=== PATIENT | female | born 1985 | race Caucasian/White ===

== ENCOUNTER 2016-09-27 20:50 | Emergency (ER) ==
[2016-09-27 21:00] VITALS: TEMP 99.8; BMI 24.3
--- NOTE | 2016-09-27 21:09 | ED.PDOC ---
General ED Provider: Dr. TIGRE CASTELLON Chief Complaint: Abdominal Pain Stated Complaint: Patient is a 31 year old female who complaints of mid epigastric pain that radiates to the right side and back. The pain is 8/10 and makes it hard for her to breath. Pain has been worse for the past 4 days vomits whenever she tries to eat. Due to fever of temp 100.3 took Tylenol 1 gm Prior to arrival. States has not had a bowel movement for 4 days Time Seen by Physician: 21:05 Mode of Arrival: Walk-In Information Source: Patient Exam Limitations: No limitations Nursing and Triage Documentation Reviewed and Agree: Yes Review of Systems - Review Of Systems Constitutional: Reports: No symptoms Eyes: Reports: No symptoms Ears, Nose, Mouth, Throat: Reports: No symptoms Respiratory: Reports: Short of air Cardiac: Reports: No symptoms GI: Reports: Abdominal pain, Constipated, Nausea, Poor appetite, Poor fluid intake. Denies: Vomiting : Reports: No symptoms Musculoskeletal: Reports: No symptoms Skin: Reports: No symptoms Neurological: Reports: Anxiety Endocrine: Reports: No symptoms Hematologic/Lymphatic: Reports: No symptoms All Other Systems: Reviewed and Negative Past Medical History - Past Medical History Previously Healthy: No Endocrine: Reports: None Cardiovascular: Reports: None Respiratory: Reports: None Hematological: Reports: None Gastrointestinal: Reports: GERD (states no NSAIDS), Other (chronic Abdominal pain with negative workup by GI doctors in [facility]. GI. ) Genitourinary: Reports: Kidney stones. Denies: None Neuro/Psych: Reports: Migraine, Anxiety, Depression Musculoskeletal: Reports: Back Pain Cancer: Reports: None Last Menstrual Period: SEP 09 2016 Other Pertinent Past Medical History: ultrasound 08/11/2015- it was fine, my doctor says I'm a hypochondriac - Surgical History General Surgical History: Reports: Tubal ligation (2014) - Family History Family History: Reports: None - Social History Smoking Status: Current every day smoker, Heavy tobacco smoker Hx Substance Use: No Alcohol Screening: None - Immunizations Tetanus Shot up to Date: No Physical Exam - Physical Exam Appearance: Ill-appearing Ill-appearing: Moderate Pain Distress: Severe Eyes: Conjunctiva clear Neck: Supple Respiratory: Airway patent, Breath sounds clear, Breath sounds equal, Respirations nonlabored Cardiovascular: Pulses normal, No rub, No murmur, Tachycardia GI/: Soft, Tender (Right lower quadrant no rebound ), Bowel sounds hypoactive Musculoskeletal: Normal strength, ROM intact, No edema, No calf tenderness Skin: Warm, Dry, Normal color Neurological: Sensation intact, Motor intact, Alert, Oriented Psychiatric: Anxious, Depressed Interpretation - Radiology Interpretation Radiology Interpretation By: Radiologist Radiology Results: Negative Exam Interpreted: CT Scan Critical Care Note - Critical Care Note Total Time (mins): 0 Course - Course Hematology/Chemistry: 09/27/16 21:19 09/27/16 21:19 Orders, Labs, Meds: Lab Review 09/27/16 21:19 WBC 10.60 H RBC 4.13 L Hgb 13.3 Hct 39.6 MCV 95.9 MCH 32.2 H MCHC 33.6 RDW Coeff of Kandice 12.3 Plt Count 346 Immature Gran % (Auto) 0.3 Neut % (Auto) 71.5 Lymph % (Auto) 19.6 [place] % (Auto) 6.9 Eos % (Auto) 1.0 Baso % (Auto) 0.7 Immature Gran # (Auto) 0.0 Neut # 7.6 H Lymph # 2.1 [place] # 0.7 Eos # 0.1 Baso # 0.1 Sodium 141 Potassium 3.7 Chloride 111 H Carbon Dioxide 24 Anion Gap 9.7 BUN 7 Creatinine 0.69 Estimated GFR (MDRD) 100.00 BUN/Creatinine Ratio 10.14 Glucose 74 Calcium 9.6 Total Bilirubin 0.35 AST 10 L ALT 7 L Alkaline Phosphatase 67 Total Protein 7.3 Albumin 4.0 Globulin 3.3 Albumin/Globulin Ratio 1.21 Amylase 63 Lipase 15 Urine Color Yellow Urine Clarity Clear Urine pH 6.5 Ur Specific [place] 1.010 Urine Protein Negative Urine Glucose (UA) Negative Urine Ketones Negative Urine Blood 2+ Urine Nitrite Negative Urine Bilirubin Negative Urine Urobilinogen 0.2 Ur Leukocyte Esterase Trace Urine Microscopic RBC 5-10 Urine Microscopic WBC 2-5 Ur Squamous Epith Cells 2-5 Urine Bacteria 1+ Orders Category Date Time Status ED IV/MEDIPORT/POWERPORT .ONCE EMERGENCY 09/27/16 21:11 Active AMYLASE Stat LAB 09/27/16 21:19 Completed CBC W/ AUTO DIFF Stat LAB 09/27/16 21:19 Completed COMPREHENSIVE METABOLIC PANEL Stat LAB 09/27/16 21:19 Completed LIPASE Stat LAB 09/27/16 21:19 Completed URINALYSIS C & S IF INDICATED Stat LAB 09/27/16 21:19 Completed URINE CULTURE Stat LAB 09/27/16 21:27 Received 0.9 % Sodium Chloride [Saline Flush] MEDS 09/27/16 21:11 Ordered 1 syr IVF PRN PRN Dicyclomine Inj [Bentyl] MEDS 09/27/16 22:41 Discontinued 20 mg IM ONCE STA Morphine Sulfate [Morphine 4 mg/ml Syringe] MEDS 09/27/16 21:11 Discontinued 4 mg IVP ONCE STA Promethazine HCl [Phenergan 25 mg/ml Vial] MEDS 09/27/16 21:21 Discontinued 25 mg .ROUTE .STK-MED ONE Promethazine HCl [Phenergan 25 mg/ml Vial] 25 mg MEDS 09/27/16 21:11 Discontinued 0.9 % Sodium Chloride [Sodium Chloride] 50 ml IV ONCE Sodium Chloride 0.9% [Sodium Chloride] 1,000 ml MEDS 09/27/16 21:[address] ABD/PEL WO RENAL STONE PROT Stat RADS 09/27/16 21:11 Completed Medications Generic Name Dose Route Start Last Admin Trade Name Freq PRN Reason Stop Dose Admin Sodium Chloride 1 syr 09/27/16 21:11 09/27/16 21:34 Saline Flush IVF 1 syr PRN PRN Administration To flush IV Discontinued Medications Generic Name Dose Route Start Last Admin Trade Name Freq PRN Reason Stop Dose Admin Dicyclomine HCl 20 mg 09/27/16 22:41 09/27/16 22:49 Bentyl IM 09/27/16 22:42 20 mg ONCE STA Administration Promethazine HCl 25 mg/ Sodium 51 mls @ 75 mls/hr 09/27/16 21:11 09/27/16 21: 30 Chloride IV 09/27/16 21:51 75 mls/hr ONCE STA Administration Sodium Chloride 1,000 mls @ 1,000 mls/hr 09/27/16 21:11 09/27/16 21:28 Sodium Chloride IV 09/27/16 22:10 1,000 mls/hr BOLUS STA Administration Morphine Sulfate 4 mg 09/27/16 21:11 09/27/16 21:33 Morphine 4 Mg/Ml Syringe IVP 09/27/16 21:12 4 mg ONCE STA Administration Vital Signs: Temp Pulse Resp BP Pulse Ox 09/27/16 20:50 99.8 F H 120 H 24 124/77 100 Departure - Departure Time of Disposition: 23:22 Disposition: HOME SELF-CARE Discharge Problem: Abdominal pain Instructions: Abdominal Pain (ED) Condition: Fair Pt referred to PMD for follow-up: Yes Additional Instructions: Push fluids Follow up with PCP in 3 day Take medications as prescribed. Prescriptions: Ondansetron HCl [Zofran Tab] 4 mg PO Q8H PRN #14 tablet PRN Reason: Nausea / Vomiting Tramadol HCl [Ultram] 50 mg PO Q6H PRN #10 tablet PRN Reason: Severe Pain Allergies/Adverse Reactions: Allergies No Known Allergies Allergy (Verified 09/27/16 20:58) Home Medications: Ambulatory Orders Sertraline HCl [Zoloft] 100 mg PO DAILY 01/05/16 Alprazolam [Xanax] 1 mg PO PRN PRN 04/24/16 Pseudoephedrine HCl [Sudafed] 30 mg PO PRN PRN 07/22/16 Promethazine HCl [Phenergan Tab] 25 mg PO Q6H PRN #15 tablet 09/12/16 Hyoscyamine Sulfate 09/27/16 Ondansetron HCl [Zofran Tab] 4 mg PO Q8H PRN #14 tablet 09/27/16 Tramadol HCl [Ultram] 50 mg PO Q6H PRN #10 tablet 09/27/16 Disposition Discussed With: Patient
[2016-09-27] MEDS ORDERED: MORPHINE 4 MG/ML SYRINGE IVP STA (21:11)
[2016-09-27] MEDS ORDERED: PHENERGAN 25 MG/ML VIAL 25 MG in SODIUM CHLORIDE 50 ML IV STA (21:11)
[2016-09-27] MEDS ORDERED: SODIUM CHLORIDE 1,000 ML IV STA (21:11)
[2016-09-27 21:21] LABS: BASOPHILS # (AUTO) 0.1 K/uL (0-0.2); BASOPHILS % (AUTO) 0.7 % (0.0-3.0); EOSINOPHILS # (AUTO) 0.1 K/ul (0.0-0.7); HEMATOCRIT 39.6 % (37.0-47.0); HEMOGLOBIN 13.3 g/dl (12.0-16.0); IMMATURE GRANULOCYTE % (AUTO) 0.3 % (0.0-5.0); LYMPHOCYTES # (AUTO) 2.1 K/uL (0.60-3.4); LYMPHOCYTES % (AUTO) 19.6 (10.0-50.0); MEAN CORPUSCULAR HEMOGLOBIN 32.2 pg (27.0-31.0); MEAN CORPUSCULAR HGB CONC 33.6 (31.8-35.4); MEAN CORPUSCULAR VOLUME 95.9 fl (81.0-99.0); MONOCYTES # (AUTO) 0.7 K/uL (0.4-2.0); MONOCYTES % (AUTO) 6.9 (0-10); NEUTROPHILS # (AUTO) 7.6 K/ul (2.0-6.9); NEUTROPHILS % (AUTO) 71.5; PLATELET COUNT 346 10^3/uL (140-440); RED BLOOD COUNT 4.13 10^6/ul (4.20-5.40)
[2016-09-27] MEDS ORDERED: PHENERGAN 25 MG/ML VIAL ONE (21:21)
[2016-09-27 21:23] LABS: BILIRUBIN,URINE Negative (NEGATIVE); KETONES,URINE Negative (NEGATIVE); LEUKOCYTE ESTERASE ,URINE Trace (NEGATIVE); NITRITE,URINE Negative (NEGATIVE); PH,URINE 6.5 (5-9); PROTEIN,URINE Negative (NEGATIVE); URINE, BLOOD 2+ (NEGATIVE)
[2016-09-27 21:26] LABS: ADD URINE MICROSCOPIC YES; BACTERIA,URINE 1+ (NOT PRESENT)
[2016-09-27 21:41] LABS: ALBUMIN/GLOBULIN RATIO 1.21; ANION GAP 9.7; BILIRUBIN,TOTAL 0.35 mg/dL (0.00-1.20); BUN/CREATININE RATIO 10.14; CALCIUM 9.6 mg/dL (8.2-10.2); CREATININE 0.69 mg/dL (0.60-1.30); POTASSIUM 3.7 mmol/L (3.5-5.10); TOTAL PROTEIN 7.3 g/dL (6.4-8.2)
--- NOTE | 2016-09-27 22:04 | CT ---
EXAM: CT abdomen pelvis without contrast HISTORY: Abdominal pain COMPARISON: The CT 09/12/2016 TECHNIQUE: Serial axial images of the abdomen pelvis were performed from the lung bases through the inferior pelvis without contrast. These were viewed in multiple planes. FINDINGS: Images of the lower thorax show no pulmonary infiltrate. No pleural fluid is seen. Abdomen. There is no intraperitoneal free air. The liver, spleen, pancreas, adrenal glands are unremarkable. A small nonobstructing 1-2 mm calculus inferior pole of the right kidney. There is no cholelithiasis or biliary ductal dilatation seen. There is no ascites. There is no small bowel obstruction or bowel wall thickening. The appendix is normal. There is no inflammation large bowel. Pelvis. Uterus midline. No free fluid is seen in the pelvis. There is a 1.5 cm right adnexal/ovari an cyst. IMPRESSION: 1. No bowel or urinary obstruction. Appendix appears normal. 2. Probable 1-2 mm nonobstructing calculus inferior pole of the right kidney. No obstruction of ei ther ureter. 3. There is a 1.5 cm right ovarian/adnexal cyst. No free fluid is seen in the pelvis.
[2016-09-27] MEDS ORDERED: BENTYL IM STA (22:41)
[2016-09-27 23:23] VITALS: BP 108/70
== END 2016-09-27 23:45 | disposition home or self-care (01) ==
LOC: ED 20:50
DX: R10.13 Epigastric pain (principal); R50.9 Fever, unspecified; F17.210 Nicotine dependence, cigarettes, uncomplicated; Z79.899 Other long term (current) drug therapy
CPT/HCPCS: 36415; 74176; 80053; 81001; 82150; 83690; 85025; 87086; 96365; 96372; 96375; 99283

== ENCOUNTER 2016-10-17 23:13 | Emergency (ER) | payer OTHER ==
[2016-10-17 23:26] VITALS: BP 126/87; TEMP 98.6; BMI 23.5
[2016-10-17] MEDS ORDERED: ATIVAN PO STA (23:30)
[2016-10-17 23:51] LABS: BASOPHILS # (AUTO) 0.1 K/uL (0-0.2); BASOPHILS % (AUTO) 0.9 % (0.0-3.0); EOSINOPHILS # (AUTO) 0.4 K/ul (0.0-0.7); EOSINOPHILS % (AUTO) 6.6 % (0.0-7.0); HEMATOCRIT 38.2 % (37.0-47.0); HEMOGLOBIN 12.2 g/dl (12.0-16.0); IMMATURE GRANULOCYTE % (AUTO) 0.2 % (0.0-5.0); LYMPHOCYTES # (AUTO) 2.4 K/uL (0.60-3.4); LYMPHOCYTES % (AUTO) 38.1 (10.0-50.0); MEAN CORPUSCULAR HEMOGLOBIN 31.9 pg (27.0-31.0); MEAN CORPUSCULAR HGB CONC 31.9 (31.8-35.4); MEAN CORPUSCULAR VOLUME 99.7 fl (81.0-99.0); MONOCYTES # (AUTO) 0.5 K/uL (0.4-2.0); MONOCYTES % (AUTO) 7.4 (0-10); NEUTROPHILS % (AUTO) 46.8; PLATELET COUNT 280 10^3/uL (140-440); RED BLOOD COUNT 3.83 10^6/ul (4.20-5.40); WHITE BLOOD COUNT 6.37 K/ul (4.6-10.2)
--- NOTE | 2016-10-18 00:06 | CT ---
EXAM: CT scan thorax without contrast HISTORY: Chest pain COMPARISON: None. FINDINGS: Contiguous axial images obtained through the thorax without contrast utilizing 5-mm colli mation. Sagittal and coronal reconstructions were imaged and reviewed. The thoracic inlet is unrem arkable. The cardiac silhouette is normal in size without pericardial effusion. The lungs are jacob r bilaterally. The visualized upper abdominal structures are unremarkable.. Review of bone windows reveals no evidence of lytic or blastic lesions. IMPRESSION: No acute findings
[2016-10-18 00:32] LABS: ALANINE AMINOTRANSFERASE 17 U/L (12-78); ALBUMIN 3.8 g/dL (3.4-5.0); ALBUMIN/GLOBULIN RATIO 1.31; ALKALINE PHOSPHATASE 63 U/L (42-98); ANION GAP 11.5; ASPARTATE AMINO TRANSFERASE 20 U/L (15-37); BILIRUBIN,TOTAL 0.13 mg/dL (0.00-1.20); BLOOD UREA NITROGEN 10 mg/dL (7-18); BUN/CREATININE RATIO 14.08; CALCIUM 9.4 mg/dL (8.2-10.2); CARBON DIOXIDE 31 mmol/L (21-32); CHLORIDE 105 mmol/L (98-107); CREATINE KINASE 91 U/L; CREATININE 0.71 mg/dL (0.60-1.30); GLUCOSE 77 mg/dL (70-110); POTASSIUM 3.5 mmol/L (3.5-5.10); SODIUM 144 mmol/L (136-145); TOTAL PROTEIN 6.7 g/dL (6.4-8.2)
[2016-10-18 02:22] LABS: BILIRUBIN,URINE Negative (NEGATIVE); KETONES,URINE Negative (NEGATIVE); LEUKOCYTE ESTERASE ,URINE Negative (NEGATIVE); NITRITE,URINE Negative (NEGATIVE); PROTEIN,URINE Negative (NEGATIVE); URINE, BLOOD 3+ (NEGATIVE)
[2016-10-18 02:25] LABS: ADD URINE MICROSCOPIC YES
[2016-10-18 02:26] LABS: BACTERIA,URINE TRACE (NOT PRESENT); COCAIN SCREEN,URINE NEGATIVE (NEGATIVE)
--- NOTE | 2016-10-18 04:29 | ED.PDOC ---
General ED Provider: Dr. FREDDY MCCALL-ER Chief Complaint: Chest Pain Stated Complaint: my chest feels tight---i have anxiety Time Seen by Physician: 23:20 Mode of Arrival: Walk-In Information Source: Patient Exam Limitations: No limitations Nursing and Triage Documentation Reviewed and Agree: Yes Cardiovascular Complaint Exam - Chest Pain Complaint/Exam Onset: Gradual Duration: several hours Symptoms Are: Still present Initial Severity: Mild Current Severity: Mild Location: Reports: Diffuse Pain Radiates: Reports: None Character: Reports: Tightness, Heaviness, Pressure Aggravating: Reports: None Alleviating: Reports: Spontaneous resolution Associated Signs and Symptoms: Denies: Diaphoresis, Nausea, Vomiting, Fever, Palpitations, Cough, Hemoptysis, Back pain, Abdominal pain, Dizziness, Short of air, Calf pain, Calf swelling History of Healthcare-Acquired Pneumonia: Reports: No AMI/ACS Risk Factors: Reports: None TAD Risk Factors: Reports: None Pulmonary Embolism Risk Factors: Reports: None Prior Care for this Complaint: No Recent Stress Test: No Recent Echo/LV Function: No JVD Present: No Subcutaneous Emphysema Present: No Diminshed Breath Sounds: No Reproducible Chest Wall Pain: No Bilateral Pulses Present: Yes Unequal Pulses Noted: No If Risk Factors for AMI/ACS 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: EKG Moving Van Driver Consulted: No Differential Diagnoses: Acute UT, ACS Quality Indicator For Non-Traumatic Chest Pain/Syncope: EKG Performed Review of Systems - Review Of Systems Constitutional: Reports: No symptoms Eyes: Reports: No symptoms Ears, Nose, Mouth, Throat: Reports: No symptoms Respiratory: Reports: No symptoms Cardiac: Reports: Chest pain GI: Reports: No symptoms : Reports: No symptoms Musculoskeletal: Reports: No symptoms Skin: Reports: No symptoms Neurological: Reports: No symptoms Endocrine: Reports: No symptoms Hematologic/Lymphatic: Reports: No symptoms All Other Systems: Reviewed and Negative Past Medical History - Past Medical History Previously Healthy: No Endocrine: Reports: None Cardiovascular: Reports: None Respiratory: Reports: None Hematological: Reports: None Gastrointestinal: Reports: GERD (states no NSAIDS), Other (chronic Abdominal pain with negative workup by GI doctors in [facility]. GI. ) Genitourinary: Reports: Kidney stones. Denies: None Neuro/Psych: Reports: Migraine, Anxiety, Depression Musculoskeletal: Reports: Back Pain Cancer: Reports: None Last Menstrual Period: 10/06/15 Other Pertinent Past Medical History: ultrasound 08/11/2015- it was fine, my doctor says I'm a hypochondriac - Surgical History General Surgical History: Reports: Tubal ligation (2015) - Family History Family History: Reports: None - Social History Smoking Status: Current every day smoker, Heavy tobacco smoker Hx Substance Use: No Alcohol Screening: None Lives: With family - Immunizations Tetanus Shot up to Date: No Physical Exam - Physical Exam Appearance: Well-appearing, No pain distress, Well-nourished Eyes: DANIELLE, EOMI, Conjunctiva clear ENT: Ears normal, Nose normal, Oropharynx normal Neck: Supple Respiratory: Airway patent, Breath sounds clear, Breath sounds equal, Respirations nonlabored Cardiovascular: RRR GI/: Soft, Nontender, No masses, Bowel sounds normal, No Organomegaly Musculoskeletal: Normal strength, ROM intact, No edema, No calf tenderness Skin: Warm (several excoriated lesions on her arms from "picking" due to anxiety ), Dry, Normal color Neurological: Sensation intact, Motor intact, Reflexes intact, Cranial nerves intact, Alert, Oriented Psychiatric: Affect appropriate Interpretation - Radiology Interpretation Radiology Interpretation By: Radiologist Radiology Results: Negative Exam Interpreted: CT Scan - EKG Interpretation Time of EKG #1: 23:55 Rate: Normal Rhythm: Sinus Ectopy: None [place]: NL ST Segment: Normal Re-Evaluation - Re-Evaluation Time of Re-Evaluation: 04:29 Status: Improved (no pain--sleeping well) Vital Signs Stable: Yes Pain Level: 0 Appearance: NAD Lungs: Clear Skin: Warm and Dry Neuro: Alert and Oriented X3 CV: RRR Critical Care Note - Critical Care Note Total Time (mins): 0 Course - Course Hematology/Chemistry: 10/17/16 23:50 10/17/16 23:50 Orders, Labs, Meds: Lab Review 10/17/16 10/18/16 23:50 02:05 WBC 6.37 RBC 3.83 L Hgb 12.2 Hct 38.2 MCV 99.7 H MCH 31.9 H MCHC 31.9 RDW Coeff of Kandice 12.4 Plt Count 280 Immature Gran % (Auto) 0.2 Neut % (Auto) 46.8 Lymph % (Auto) 38.1 [place] % (Auto) 7.4 Eos % (Auto) 6.6 Baso % (Auto) 0.9 Immature Gran # (Auto) 0.0 Neut # 3.0 Lymph # 2.4 [place] # 0.5 Eos # 0.4 Baso # 0.1 D-Dimer 0.25 Sodium 144 Potassium 3.5 Chloride 105 Carbon Dioxide 31 Anion Gap 11.5 BUN 10 Creatinine 0.71 Estimated GFR (MDRD) 97.00 BUN/Creatinine Ratio 14.08 Glucose 77 Calcium 9.4 Total Bilirubin 0.13 AST 20 ALT 17 Alkaline Phosphatase 63 Total Creatine Kinase 91 Troponin I < 0.0100 Total Protein 6.7 Albumin 3.8 Globulin 2.9 Albumin/Globulin Ratio 1.31 TSH 2.451 Free T4 1.00 Urine Color Yellow Urine Clarity Clear Urine pH 7.0 Ur Specific [place] 1.020 Urine Protein Negative Urine Glucose (UA) Negative Urine Ketones Negative Urine Blood 3+ Urine Nitrite Negative Urine Bilirubin Negative Urine Urobilinogen 0.2 Ur Leukocyte Esterase Negative Urine Microscopic RBC 5-10 Ur Squamous Epith Cells 0-2 Urine Bacteria Trace Urine Opiates Screen Negative Ur Oxycodone Screen Negative Urine Methadone Screen Negative Ur Propoxyphene Screen Negative Ur Barbiturates Screen Negative U Tricyclic Antidepress Negative Ur Phencyclidine Scrn Negative Ur Amphetamine Screen Negative U Methamphetamines Scrn Negative U Benzodiazepines Scrn Positive Urine Cocaine Screen Negative U Cannabinoids Screen Negative Orders Category Date Time Status EKG-(ED ONLY) Stat CARDIO 10/17/16 23:29 Completed CBC W/ AUTO DIFF Stat LAB 10/17/16 23:50 Completed COMPREHENSIVE METABOLIC PANEL Stat LAB 10/17/16 23:50 Completed CREATINE KINASE Stat LAB 10/17/16 23:50 Completed D-DIMER Stat LAB 10/17/16 23:50 Completed FREE T4 (FREE THYROXINE) Stat LAB 10/17/16 23:50 Completed THYROID STIMULATING HORMONE Stat LAB 10/17/16 23:50 Completed TROPONIN I Stat LAB 10/17/16 23:50 Completed URINALYSIS C & S IF INDICATED Stat LAB 10/18/16 02:05 Completed URINE DRUG SCREEN (RAPID FOR ED) [DRUG SCREEN, URINE, LAB 10/18/16 02:05 Completed RAPID] Stat Lorazepam [Ativan] MEDS 10/17/16 23:30 Discontinued 1 mg PO ONCE STA CT CHEST W/O CONTRAST Stat RADS 10/17/16 23:30 Completed Medications Discontinued Medications Generic Name Dose Route Start Last Admin Trade Name Freq PRN Reason Stop Dose Admin Lorazepam 1 mg 10/17/16 23:30 10/17/16 23:49 Ativan PO 10/17/16 23:31 1 mg ONCE STA Administration Vital Signs: Temp Pulse Resp BP Pulse Ox 10/17/16 23:14 98.6 F 79 22 126/87 99 EVERARDO Risk Score EVERARDO Risk Score: Risk Score Odds of by 30D 0 0.1 (0.1-0.2) 1 0.3 (0.2-0.3) 2 0.4 (0.3-0.5) 3 0.7 (0.6-0.9) 4 1.2 (1.0-1.5) 5 2.2 (1.9-2.6) 6 3.0 (2.5-3.6) 7 4.8 (3.8-6.1) Departure - Departure Time of Disposition: : Disposition: HOME SELF-CARE Discharge Problem: Chest pain Instructions: Chest Pain (ED) Condition: Good Pt referred to PMD for follow-up: Yes Additional Instructions: f/u pcp--consider outpatient stress testing Allergies/Adverse Reactions: Allergies No Known Allergies Allergy (Verified 10/17/16 23:26) Home Medications: Ambulatory Orders Sertraline HCl [Zoloft] 100 mg PO DAILY 01/05/16 Alprazolam [Xanax] 1 mg PO PRN PRN 04/24/16 Pseudoephedrine HCl [Sudafed] 30 mg PO PRN PRN 07/22/16 Promethazine HCl [Phenergan Tab] 25 mg PO Q6H PRN #15 tablet 09/12/16 Hyoscyamine Sulfate 0.125 mg PO DIRECTED 09/27/16 Ondansetron HCl [Zofran Tab] 4 mg PO Q8H PRN #14 tablet 09/27/16 Tramadol HCl [Ultram] 50 mg PO Q6H PRN #10 tablet 09/27/16 Disposition Discussed With: Patient
== END 2016-10-18 04:33 | disposition home or self-care (01) ==
LOC: ED 23:13
DX: R07.9 Chest pain, unspecified (principal); F17.210 Nicotine dependence, cigarettes, uncomplicated; Z79.899 Other long term (current) drug therapy
CPT/HCPCS: 36415; 80053; 80306; 81001; 82550; 84439; 84443; 84484; 85025; 85379; 93005; 93010; 99283

== ENCOUNTER 2016-11-30 06:04 | Emergency (ER) ==
[2016-11-30 06:13] VITALS: BP 109/71; TEMP 99.2; BMI 24.3
[2016-11-30] MEDS ORDERED: MORPHINE 2 MG/ML SYRINGE IVP STA (06:27)
[2016-11-30] MEDS ORDERED: SODIUM CHLORIDE 1,000 ML IV STA (06:27)
[2016-11-30] MEDS ORDERED: ZOFRAN 4 MG/2 ML IVP STA (06:27)
--- NOTE | 2016-11-30 06:37 | ED.PDOC ---
General Stated Complaint: im hurting--my mom says its my gb Time Seen by Physician: 06:10 Mode of Arrival: Walk-In Information Source: Patient Exam Limitations: No limitations Nursing and Triage Documentation Reviewed and Agree: Yes <FREDDY PEOPLES - Last Filed: 11/30/16 06:34> <LIANNA LEE JR - Last Filed: 11/30/16 08:52> ED Provider: Dr. LIANNA LEE JR ([facility] (LIANNA LEE JR) Chief Complaint: Abdominal Pain Primary Care Provider: DREW RODRIGUEZ ([facility]) (LIANNA LEE JR) GI Complaint Exam - Abdominal Pain Complaint/Exam Onset: Gradual Duration: several hours Symptoms Are: Still present Timing: Intermittent Initial Severity: Mild Current Severity: Moderate Location of Pain: RUQ Radiates To: Reports: Chest Character: Reports: Dull, Aching, Burning, Cramping Aggravating: Reports: None Alleviating: Reports: None Associated Signs and Symptoms: Reports: Chest pain, Nausea, Diarrhea. Denies: Diaphoresis, Fever, Cough, Dizziness, Back pain, Constipation, Blood in stool, Dysuria, Urinary frequency, Decreased urine output, Decreased appetite, Vaginal bleeding, Vaginal discharge, Vomiting, Sore throat, Decreased activity Ovarian Torsion Risk Factors: Reports: Reproductive age Related Surgical History: Reports: None Patient Rh Status: Unknown Abdominal Findings: Present: None Differential Diagnoses: Appendicitis, Constipation, GB Quality Indicator For Non-Traumatic Chest Pain/Syncope: EKG Performed <FREDDY PEOPLES - Last Filed: 11/30/16 06:34> Review of Systems - Review Of Systems Constitutional: Reports: No symptoms Eyes: Reports: No symptoms Ears, Nose, Mouth, Throat: Reports: No symptoms Respiratory: Reports: No symptoms Cardiac: Reports: No symptoms GI: Reports: Abdominal pain, Diarrhea, Nausea, Poor appetite : Reports: No symptoms Musculoskeletal: Reports: No symptoms Skin: Reports: No symptoms Neurological: Reports: No symptoms Endocrine: Reports: No symptoms Hematologic/Lymphatic: Reports: No symptoms All Other Systems: Reviewed and Negative <FREDDY PEOPLES - Last Filed: 11/30/16 06:34> Past Medical History - Past Medical History Previously Healthy: No Endocrine: Reports: None Cardiovascular: Reports: None Respiratory: Reports: None Hematological: Reports: None Gastrointestinal: Reports: GERD (states no NSAIDS), Other (chronic Abdominal pain with negative workup by GI doctors in [place] and [facility]. GI. ) Genitourinary: Reports: Kidney stones. Denies: None Neuro/Psych: Reports: Migraine, Anxiety, Depression Musculoskeletal: Reports: Back Pain Cancer: Reports: None Last Menstrual Period: 10/08/16 Other Pertinent Past Medical History: ultrasound 08/11/2015- it was fine, my doctor says I'm a hypochondriac - Surgical History General Surgical History: Reports: Tubal ligation (2014) - Family History Family History: Reports: None - Social History Smoking Status: Current every day smoker, Heavy tobacco smoker Hx Substance Use: No Alcohol Screening: None - Immunizations Tetanus Shot up to Date: No <FREDDY PEOPLES - Last Filed: 11/30/16 06:34> Physical Exam - Physical Exam Appearance: Well-appearing, No pain distress, Well-nourished Pain Distress: Moderate Eyes: DANIELLE, EOMI, Conjunctiva clear ENT: Ears normal, Nose normal, Oropharynx normal Neck: Supple Respiratory: Airway patent, Breath sounds clear, Breath sounds equal, Respirations nonlabored Cardiovascular: RRR, Pulses normal, No rub, No murmur GI/: Soft, No masses, Bowel sounds normal, No Organomegaly, Tender Musculoskeletal: Normal strength Skin: Warm Neurological: Sensation intact, Motor intact, Reflexes intact, Cranial nerves intact, Alert, Oriented Psychiatric: Affect appropriate, Mood appropriate, Anxious <FREDDY PEOPLES - Last Filed: 11/30/16 06:34> Re-Evaluation - Re-Evaluation Time of Re-Evaluation: 08:50 (reviewed test results tender below right breast breast not examines no sin lesions on schest wall no irregularities lungs cta - discussed negatve testing will follwo with pmd no past benefit bentyl sucralfate r nexium- 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) Status: Improved <LIANNA LEE JR - Last Filed: 11/30/16 08:52> Physician Notification - Case Discussed Physician Notified: dr lee Time of Notification: 07:00 <FREDDY PEOPLES - Last Filed: 11/30/16 06:34> - Case Discussed Physician Notified: CAL Time of Notification: 06:50 (URI/GB) <LIANNA LEE JR - Last Filed: 11/30/16 08:52> Critical Care Note - Critical Care Note Total Time (mins): 5 <LIANNA LEE JR - Last Filed: 11/30/16 08:52> Course - Course Hematology/Chemistry: 11/30/16 06:35 11/30/16 06:35 <LIANNA LEE JR - Last Filed: 11/30/16 08:52> - Course Orders, Labs, Meds: Lab Review 11/30/16 06:35 WBC 10.56 H RBC 3.55 L Hgb 11.4 L Hct 34.3 L MCV 96.6 MCH 32.1 H MCHC 33.2 RDW Coeff of Kandice 12.8 Plt Count 272 Immature Gran % (Auto) 0.3 Neut % (Auto) 65.3 Lymph % (Auto) 22.2 Bertie % (Auto) 7.0 Eos % (Auto) 4.5 Baso % (Auto) 0.7 Immature Gran # (Auto) 0.0 Neut # 6.9 Lymph # 2.3 Bertie # 0.7 Eos # 0.5 Baso # 0.1 ESR 14 D-Dimer 0.49 Sodium 140 Potassium 3.5 Chloride 108 H Carbon Dioxide 22 Anion Gap 13.5 BUN 14 Creatinine 0.66 Estimated GFR (MDRD) 105.00 BUN/Creatinine Ratio 21.21 Glucose 85 Calcium 8.7 Total Bilirubin < 0.10 AST 13 L ALT 21 Alkaline Phosphatase 76 Total Creatine Kinase 47 Troponin I < 0.0100 Total Protein 6.5 Albumin 3.5 Globulin 3.0 Albumin/Globulin Ratio 1.17 Amylase 57 Lipase 29 HCG, Quant < 1.20 Influenza A (Rapid) Negative Influenza B (Rapid) Negative Orders Category Date Time Status EKG-(ED ONLY) Stat CARDIO 11/30/16 06:26 Completed NPO REMINDER: IMAGING ONCE CARE 11/30/16 06:28 Completed IV [ED IV/MEDIPORT/POWERPORT] .ONCE EMERGENCY 11/30/16 06:26 Active AMYLASE Stat LAB 11/30/16 06:35 Completed CBC W/ AUTO DIFF Stat LAB 11/30/16 06:35 Completed COMPREHENSIVE METABOLIC PANEL Stat LAB 11/30/16 06:35 Completed CREATINE KINASE Stat LAB 11/30/16 06:35 Completed D-DIMER Stat LAB 11/30/16 06:35 Completed ESR Stat LAB 11/30/16 06:35 Completed HCG,QUANTITATIVE Stat LAB 11/30/16 06:35 Completed LIPASE Stat LAB 11/30/16 06:35 Completed MOLECULAR GROUP A STREP Stat LAB 11/30/16 06:35 Results RAPID FLU A/B Stat LAB 11/30/16 06:35 Completed STREP SCREEN Stat LAB 11/30/16 06:35 Results TROPONIN I Stat LAB 11/30/16 06:35 Completed URINALYSIS C & S IF INDICATED Stat LAB 11/30/16 06:27 Uncollected 0.9 % Sodium Chloride [Saline Flush] MEDS 11/30/16 06:26 Ordered 1 syr IVF PRN PRN Morphine Sulfate [Morphine 2 mg/ml Syringe] MEDS 11/30/16 06:27 Discontinued 2 mg IVP ONCE STA Morphine Sulfate [Morphine 4 mg/ml Syringe] MEDS 11/30/16 08:14 Discontinued 4 mg IVP ONCE STA Ondansetron HCl/Pf [Zofran 4 mg/2 ml] MEDS 11/30/16 06:27 Discontinued 4 mg IVP ONCE STA Sodium Chloride 0.9% [Sodium Chloride] 1,000 ml MEDS 11/30/16 06:27 Active IV 100 mls/hr CT ABDOMEN/PELVIS W CONTRAST Stat RADS 11/30/16 06:[address] CHEST PE PROTOCOL Stat RADS 11/30/16 06:28 Ordered Medications Generic Name Dose Route Start Last Admin Trade Name Freq PRN Reason Stop Dose Admin Sodium Chloride 1,000 mls @ 100 mls/hr 11/30/16 06:27 11/30/16 07:00 Sodium Chloride IV 11/30/16 16:26 100 mls/hr .Q10H STA Administration Sodium Chloride 1 syr 11/30/16 06:26 11/30/16 08:22 Saline Flush IVF 1 syr PRN PRN Administration To flush IV Discontinued Medications Generic Name Dose Route Start Last Admin Trade Name Freq PRN Reason Stop Dose Admin Morphine Sulfate 2 mg 11/30/16 06:27 11/30/16 07:00 Morphine 2 Mg/Ml Syringe IVP 11/30/16 06:28 2 mg ONCE STA Administration Morphine Sulfate 4 mg 11/30/16 08:14 11/30/16 08:20 Morphine 4 Mg/Ml Syringe IVP 11/30/16 08:15 4 mg ONCE STA Administration Ondansetron HCl 4 mg 11/30/16 06:27 11/30/16 07:00 Zofran 4 Mg/2 Ml IVP 11/30/16 06:28 4 mg ONCE STA Administration (FREDDY PEOPLES) (LIANNA LEE JR) Vital Signs: Temp Pulse Resp BP Pulse Ox 11/30/16 06:07 99.2 F 88 20 109/71 98 (FREDDY PEOPLES) (LIANNA LEE JR) Departure <FREDDY PEOPLES - Last Filed: 11/30/16 06:34> - Departure Time of Disposition: 08:14 Pt referred to PMD for follow-up: Yes <LIANNA LEE JR - Last Filed: 11/30/16 08:52> - Departure Disposition: HOME SELF-CARE Discharge Problem: Abdominal pain, Abdominal pain in female patient Instructions: Chronic Abdominal Pain (ED) Condition: Good Additional Instructions: no specific abnormalities found recommend counselling, discuss any possible inciting events keep diet log to correlate possible food reactions recheck PMD, reevaluate for possible causes of pain no evidence of gall stones discuss pain relief with PMD opiates are inappropriate without specific diagnosis would not use bentyl or motrin if side effects in the past may try neurontin for discomfort Prescriptions: Gabapentin 300 mg PO TID PRN #30 capsule PRN Reason: PAIN Allergies/Adverse Reactions: Allergies No Known Allergies Allergy (Verified 11/30/16 06:12) Home Medications: Ambulatory Orders Sertraline HCl [Zoloft] 100 mg PO DAILY 01/05/16 Alprazolam [Xanax] 1 mg PO PRN PRN 04/24/16 Pseudoephedrine HCl [Sudafed] 30 mg PO PRN PRN 07/22/16 Hyoscyamine Sulfate 0.125 mg PO DIRECTED 09/27/16 Gabapentin 300 mg PO TID PRN #30 capsule 11/30/16 Tizanidine HCl [Zanaflex] 4 mg PO DAILY 11/30/16
[2016-11-30 06:47] LABS: BASOPHILS # (AUTO) 0.1 K/uL (0-0.2); BASOPHILS % (AUTO) 0.7 % (0.0-3.0); EOSINOPHILS # (AUTO) 0.5 K/ul (0.0-0.7); EOSINOPHILS % (AUTO) 4.5 % (0.0-7.0); HEMATOCRIT 34.3 % (37.0-47.0); HEMOGLOBIN 11.4 g/dl (12.0-16.0); IMMATURE GRANULOCYTE % (AUTO) 0.3 % (0.0-5.0); LYMPHOCYTES # (AUTO) 2.3 K/uL (0.60-3.4); LYMPHOCYTES % (AUTO) 22.2 (10.0-50.0); MEAN CORPUSCULAR HEMOGLOBIN 32.1 pg (27.0-31.0); MEAN CORPUSCULAR HGB CONC 33.2 (31.8-35.4); MEAN CORPUSCULAR VOLUME 96.6 fl (81.0-99.0); MONOCYTES # (AUTO) 0.7 K/uL (0.4-2.0); NEUTROPHILS # (AUTO) 6.9 K/ul (2.0-6.9); NEUTROPHILS % (AUTO) 65.3; PLATELET COUNT 272 10^3/uL (140-440); RED BLOOD COUNT 3.55 10^6/ul (4.20-5.40); WHITE BLOOD COUNT 10.56 K/ul (4.6-10.2)
[2016-11-30 07:05] LABS: FLU INTERNAL QC INTERNAL QC VALID; RAPID FLU A NEGATIVE (NEGATIVE); RAPID FLU B NEGATIVE (NEGATIVE)
[2016-11-30 07:15] LABS: ALANINE AMINOTRANSFERASE 21 U/L (12-78); ALBUMIN 3.5 g/dL (3.4-5.0); ALBUMIN/GLOBULIN RATIO 1.17; ALKALINE PHOSPHATASE 76 U/L (42-98); AMYLASE 57 U/L (25-115); ANION GAP 13.5; ASPARTATE AMINO TRANSFERASE 13 U/L (15-37); BLOOD UREA NITROGEN 14 mg/dL (7-18); BUN/CREATININE RATIO 21.21; CALCIUM 8.7 mg/dL (8.2-10.2); CARBON DIOXIDE 22 mmol/L (21-32); CHLORIDE 108 mmol/L (98-107); CREATINE KINASE 47 U/L; CREATININE 0.66 mg/dL (0.60-1.30); GLUCOSE 85 mg/dL (70-110); LIPASE 29 U/L (8-78); POTASSIUM 3.5 mmol/L (3.5-5.10); SODIUM 140 mmol/L (136-145); TOTAL PROTEIN 6.5 g/dL (6.4-8.2)
[2016-11-30 07:16] LABS: BILIRUBIN,TOTAL < 0.10 mg/dL (0.00-1.20)
[2016-11-30 07:21] LABS: ERYTHROCYTE SEDIMENTATION RATE 14 mm/hr (0-20); ESR INTERNAL QC INTERNAL QC VALID
[2016-11-30] MEDS ORDERED: MORPHINE 4 MG/ML SYRINGE IVP STA (08:14)
--- NOTE | 2016-11-30 08:18 | CT ---
Examination: Noncontrasted CT imaging of the abdomen and abdomen followed by contrasted CT examinat ion of the abdomen and pelvis with axial, sagittal, and coronal reformats. Comparison: 08/12/2016. Reason for study: Right upper quadrant pain. FINDINGS: The partially imaged lung bases are clear without pneumothorax, pleural effusion, focal c onsolidation. The heart does not appear enlarged. There is a similar appearing right hepatic lobe hypodensity seen on axial image number 21. Otherwis e the hepatic parenchyma is unremarkable. The gallbladder, adrenal glands, pancreas, and spleen are unremarkable. No hydronephrosis, hydroureter, or nephrolithiasis is seen in either kidney. There is no focal bowel dilatation or transition point. No intra-abdominal free air. There is a 5.1 cm hypodensity in the left pelvis, likely a ovarian cyst. There is a small amount of fluid within the endometrial canal that is likely physiologic. 1 cm hypodensity in the right lower pelvis best seen on coronal image number 56 is also likely a sma ll ovarian cyst. There is a tiny only fat containing periumbilical hernia. Impression: 1. Likely bilateral ovarian cysts. The largest is seen within the left pelvis measuring approximat shelley 5 cm in diameter. If clinical concern exists, a follow-up ultrasound may be performed. 2. Otherwise, no acute imaging findings are seen within the abdomen and pelvis.
== END 2016-11-30 09:05 | disposition home or self-care (01) ==
LOC: ED 06:04
DX: R10.11 Right upper quadrant pain (principal); R07.9 Chest pain, unspecified; F17.210 Nicotine dependence, cigarettes, uncomplicated; Z79.899 Other long term (current) drug therapy
CPT/HCPCS: 36415; 80053; 82150; 82550; 83690; 84484; 84702; 85025; 85379; 85651; 87651; 87804; 87880; 93005; 93010; 96361; 96374; 96375; 96376; 99283

== ENCOUNTER 2016-12-08 09:15 | Outpatient (CLI) ==
[2013-03-10 13:53] VITALS: TEMP 97.8
--- NOTE | 2016-12-08 10:15 | US ---
EXAM: Ultrasound abdomen complete. HISTORY: Abdominal pain COMPARISON: CT 11/30/2016 TECHNIQUE: Abdominal, real time with image documentation: Complete. FINDINGS: Liver: A 1.7 x 1.4 x 1.3 cm homogeneous hyperechoic lesion is seen in the right lobe. The isha er is otherwise unremarkable. No intrahepatic biliary dilatation. Portal venous flow is normal dir ection. Gallbladder: Normal. Common bile duct: 0.4 cm. Pancreas: Visualized portions are unremarkable. Spleen: Normal, length 9.1 cm. Right kidney: 11.7 cm length. No hydronephrosis. Left kidney: 11.2 cm in length. No hydronephrosis. Aorta: Visualized portions are normal in caliber. IVC: Visualized portions are normal in caliber. IMPRESSION: Hyperechoic hepatic lesion is most likely a hemangioma. No acute sonographic abnormality of the abd omen.
== END 2016-12-08 09:16 | disposition home or self-care (01) ==
LOC: RAD 09:15
PROVIDERS: ATTEND Physician Assistant
DX: R10.13 Epigastric pain (principal)

== ENCOUNTER 2017-12-20 09:25 | Emergency (ER) ==
[2017-12-20 09:31] VITALS: BP 139/84; TEMP 97.5; BMI 22.4
[2017-12-20] MEDS ORDERED: ZOFRAN 4 MG/2 ML IM STA (09:48)
[2017-12-20] MEDS ORDERED: MORPHINE 2 MG/ML SYRINGE IM STA (09:48)
[2017-12-20] MEDS ORDERED: TORADOL IM STA (09:49)
--- NOTE | 2017-12-20 10:33 | ED.PDOC ---
General ED Provider: Dr. BUBBA BRONSON Chief Complaint: Headache Stated Complaint: HEADACHE Time Seen by Physician: 09:30 Mode of Arrival: Walk-In Information Source: Patient Exam Limitations: No limitations Primary Care Provider: DREW RODRIGUEZ Nursing and Triage Documentation Reviewed and Agree: Yes Reviewed sepsis parameters & appropriate labs ordered?: No System Inflammatory Response Syndrome: Not Applicable Sepsis Protocol: For patient's 13 years and over: Temp is 96.8 and below OR 101 and greater Pulse >90 BPM Resp >20/minute Acutely Altered Mental Status Are patient's symptoms suggestive of a new infection, such as: -Pneumonia -Skin, Soft Tissue -Endocarditis -UTI -Bone, Joint Infection -Implantable Device -Acute Abdominal Infection -Wound Infection -Meningitis -Blood Stream Catheter Infection -Unknown System Inflammatory Response Syndrome: Not Applicable Neurological Complaint Exam - Headache Complaint/Exam Onset: Gradual Duration: TODAY Symptoms Are: Still present Timing: Constant Episodes Lasting: Hours Worst Headache Ever: No Initial Severity: Moderate Current Severity: Moderate Location: Frontal, Temporal Character: Reports: Throbbing Aggravating: Reports: None Alleviating: Reports: None Associated Signs and Symptoms: Denies: Dizziness, Seizure, Nausea, Vomiting, Sinus pressure, Fever, Neck pain, Neck stiffness, Decreased LOC, Visual changes Related History: Reports: Similar episode Related Surgical History: Reports: None SAH Risk Factors: Reports: None Meningitis Risk Factors: Reports: None SDH Risk Factors: Reports: None Temporal Arteritis Risk Factors: Reports: Female, Normal Head CT Within Last 12 Months: Yes Fundoscopic Exam: Present: Normal Findings Temporal Artery Tenderness: Present: None Sinus Tenderness: Present: None TMJ Tenderness: Present: None Glascow Coma Scale (see protocol): 15 Meningeal Signs Positive: No Pain on Passive Flexion-Positive Kernig's: No ROM Limited In: No Limitiations Focal Weakness: Present: None Focal Sensory Loss: Present: None Gait: Normal Nystagmus Present: No Gag Reflex Present: Yes [id number]: Normal Findings, Abnormal left Differential Diagnoses: Migraine Review of Systems - Review Of Systems Constitutional: Reports: No symptoms Eyes: Reports: No symptoms Ears, Nose, Mouth, Throat: Reports: No symptoms Respiratory: Reports: No symptoms Cardiac: Reports: No symptoms GI: Reports: No symptoms : Reports: No symptoms Musculoskeletal: Reports: No symptoms Skin: Reports: No symptoms Neurological: Reports: Headache Endocrine: Reports: No symptoms Hematologic/Lymphatic: Reports: No symptoms All Other Systems: Reviewed and Negative Past Medical History - Past Medical History Previously Healthy: No Endocrine: Reports: None Cardiovascular: Reports: None Respiratory: Reports: None Hematological: Reports: None Gastrointestinal: Reports: GERD (states no NSAIDS), Other (chronic Abdominal pain with negative workup by GI doctors in [place] and [facility]. GI. ) Genitourinary: Reports: Kidney stones. Denies: None Neuro/Psych: Reports: Migraine, Anxiety, Depression Musculoskeletal: Reports: Back Pain Cancer: Reports: None Last Menstrual Period: NOW Other Pertinent Past Medical History: ultrasound 08/11/2015- it was fine, my doctor says I'm a hypochondriac - Surgical History General Surgical History: Reports: Tubal ligation (2014) - Family History Family History: Reports: None - Social History Smoking Status: Current every day smoker, Heavy tobacco smoker Hx Substance Use: No Alcohol Screening: None Physical Exam - Physical Exam Appearance: Well-appearing, No pain distress, Well-nourished Eyes: DANIELLE, EOMI, Conjunctiva clear ENT: Ears normal, Nose normal, Oropharynx normal Respiratory: Airway patent, Breath sounds clear, Breath sounds equal, Respirations nonlabored Cardiovascular: RRR, Pulses normal, No rub, No murmur GI/: Soft, Nontender, No masses, Bowel sounds normal, No Organomegaly Musculoskeletal: Normal strength, ROM intact, No edema, No calf tenderness Skin: Warm, Dry, Normal color Neurological: Sensation intact, Motor intact, Reflexes intact, Cranial nerves intact, Alert, Oriented Psychiatric: Affect appropriate, Mood appropriate Critical Care Note - Critical Care Note Total Time (mins): 0 Course - Course Orders, Labs, Meds: Orders Category Date Time Status Ketorolac Tromethamine [Toradol] MEDS 12/20/17 09:49 Discontinued 60 mg IM ONCE STA Morphine Sulfate [Morphine 2 mg/ml Syringe] MEDS 12/20/17 09:48 Discontinued 4 mg IM ONCE STA Ondansetron HCl/Pf [Zofran 4 mg/2 ml] MEDS 12/20/17 09:48 Discontinued 4 mg IM ONCE STA Medications Discontinued Medications Generic Name Dose Route Start Last Admin Trade Name Freq PRN Reason Stop Dose Admin Ketorolac Tromethamine 60 mg 12/20/17 09:49 12/20/17 09:58 Toradol IM 12/20/17 09:50 60 mg ONCE STA Administration Morphine Sulfate 4 mg 12/20/17 09:48 12/20/17 10:00 Morphine 2 Mg/Ml Syringe IM 12/20/17 09:49 4 mg ONCE STA Administration Ondansetron HCl 4 mg 12/20/17 09:48 12/20/17 10:01 Zofran 4 Mg/2 Ml IM 12/20/17 09:49 4 mg ONCE STA Administration Vital Signs: Temp Pulse Resp BP Pulse Ox 12/20/17 09:25 97.5 F L 73 20 139/84 94 L Departure - Departure Time of Disposition: 11:00 (PT WAS SEEN AT ALL TIMES WITH THE NURSE AT [facility] UMESH WOODY ) Disposition: HOME SELF-CARE Discharge Problem: Headache Instructions: Acute Headache (ED) Condition: Good Pt referred to PMD for follow-up: Yes IPMP verified?: No Additional Instructions: Please call your Family Physician as soon as possible to schedule a follow-up appointment. Allergies/Adverse Reactions: Allergies No Known Allergies Allergy (Verified 12/20/17 09:30) Home Medications: Ambulatory Orders Sertraline HCl [Zoloft] 100 mg PO DAILY 01/05/16 Alprazolam [Xanax] 1 mg PO PRN PRN 04/24/16
== END 2017-12-20 10:45 | disposition home or self-care (01) ==
LOC: ED 09:25
DX: R51 Headache (principal); F17.210 Nicotine dependence, cigarettes, uncomplicated
CPT/HCPCS: 96372; 99282

== ENCOUNTER 2018-02-28 15:01 | Emergency (ER) | payer OTHER ==
[2018-02-28 15:08] VITALS: BP 108/75; TEMP 97.9; BMI 28.6
--- NOTE | 2018-02-28 15:46 | US ---
EXAM: ULTRASOUND ABDOMEN LIMITED HISTORY: Abdominal pain and FINDINGS: Ultrasound abdomen, limited. Hernandez-scale ultrasound and color Doppler was performed. Live r size was normal at 12 cm. The liver parenchyma demonstrated normal sonographic appearance without e vidence of intrahepatic biliary dilatation or focal lesion. Patent and hepatopedal main portal vein. No evidence of gallbladder stones or sludge. Gallbladder wall thickness was normal at 0.23 centimete rs and the common duct diameter normal at 0.39 centimeters. The visualized portions of the pancreas appeared unremarkable. IMPRESSION: Findings within normal limits.
[2018-02-28] MEDS ORDERED: TORADOL IM STA (15:52)
[2018-02-28] MEDS ORDERED: ZOFRAN 4 MG/2 ML IM STA ×2 (15:52→16:09)
--- NOTE | 2018-02-28 16:34 | CT ---
Exam: CT chest without intravenous contrast. Comparison: 10/17/2016. Reason for exam: Cough. FINDINGS: Image interpretation is limited by the lack of intravenous contrast administration. No pneumothorax, pleural effusion, or focal consolidation. Para graft. The aorta is normal in cours e and caliber. The heart is not enlarged. The thyroid gland appears grossly unremarkable. No suspicious appearing osteoblastic or osteolytic lesions. The partially imaged upper abdomen appears grossly unremarkable. Impression: No acute imaging findings are seen within the thorax.
--- NOTE | 2018-02-28 16:34 | CT ---
EXAM: CT abdomen pelvis without contrast HISTORY: Constipation COMPARISON: 11/30/2016 TECHNIQUE: CT abdomen pelvis performed without intravenous contrast. Coronal and sagittal reformatt ed images obtained. FINDINGS: Please refer to separate report CT chest regarding findings in the lower chest. No free a ir. No acute abnormalities of the bones. Evaluation organ parenchyma limited without contrast. Eufemia er, gallbladder, pancreas, spleen, adrenals unremarkable. 2 mm nonobstructing left renal calculus. No hydronephrosis. No calculi visualized in normal course of the ureters. Bladder unremarkable. Ut erus unremarkable. Right ovarian cyst or follicle measuring 2 cm. Minimal fat-containing periumbili tequila hernia. Aorta normal in caliber. Stomach appears normal. No dilated loops small bowel. Append ix appears normal. Colon unremarkable. IMPRESSION: 1. No acute abnormality identified in the abdomen or pelvis. 2. Left nephrolithiasis. No hydronephrosis.
--- NOTE | 2018-02-28 16:48 | ED.PDOC ---
General ED Provider: Dr. BUBBA BRONSON Chief Complaint: Respiratory Complaint Stated Complaint: RIGHT UPPER ABDOMINAL PAIN Time Seen by Physician: 15:00 (NO INJURY. SEEN WITH COURTNEY WANG AT ALL TIMES ) Mode of Arrival: Walk-In Information Source: Patient Exam Limitations: No limitations Primary Care Provider: DREW RODRIGUEZ Nursing and Triage Documentation Reviewed and Agree: Yes Reviewed sepsis parameters & appropriate labs ordered?: Yes System Inflammatory Response Syndrome: Not Applicable Sepsis Protocol: For patient's 13 years and over: Temp is 96.8 and below OR 101 and greater Pulse >90 BPM Resp >20/minute Acutely Altered Mental Status Are patient's symptoms suggestive of a new infection, such as: -Pneumonia -Skin, Soft Tissue -Endocarditis -UTI -Bone, Joint Infection -Implantable Device -Acute Abdominal Infection -Wound Infection -Meningitis -Blood Stream Catheter Infection -Unknown GI Complaint Exam - Abdominal Pain Complaint/Exam Onset: Gradual Duration: 3 DAYS Symptoms Are: Still present Timing: Constant Initial Severity: Moderate Current Severity: Mild Location of Pain: RUQ Radiates To: Reports: Chest (RIGHT LOWER CHEST WALL NEGATIVE INJURY) Character: Reports: Aching Aggravating: Reports: Movement Alleviating: Reports: Rest Associated Signs and Symptoms: Denies: Diaphoresis, Fever, Cough, Chest pain, Dizziness, Back pain, Constipation, Blood in stool, Dysuria, Urinary frequency, Decreased urine output, Decreased appetite, Vaginal bleeding, Vaginal discharge , Nausea, Vomiting, Diarrhea, Sore throat, Decreased activity AAA Risk Factors: Reports: None Cardiac Risk Factors: Reports: None Ectopic Risk Factors: Reports: None Ovarian Torsion Risk Factors: Reports: None Surgical Obstruction Risk Factors: Reports: None Related Surgical History: Reports: None Patient Rh Status: Unknown Abdominal Findings: Present: None Differential Diagnoses: GB Review of Systems - Review Of Systems Constitutional: Reports: No symptoms Eyes: Reports: No symptoms Ears, Nose, Mouth, Throat: Reports: No symptoms Respiratory: Reports: No symptoms Cardiac: Reports: No symptoms GI: Reports: Abdominal pain : Reports: No symptoms Musculoskeletal: Reports: No symptoms Skin: Reports: No symptoms Neurological: Reports: No symptoms Endocrine: Reports: No symptoms Hematologic/Lymphatic: Reports: No symptoms All Other Systems: Reviewed and Negative Past Medical History - Past Medical History Previously Healthy: No Endocrine: Reports: None Cardiovascular: Reports: None Respiratory: Reports: None Hematological: Reports: None Gastrointestinal: Reports: GERD (states no NSAIDS), Other (chronic Abdominal pain with negative workup by GI doctors in [place] and [facility]. GI. ) Genitourinary: Reports: Kidney stones. Denies: None Neuro/Psych: Reports: Migraine, Anxiety, Depression Musculoskeletal: Reports: Back Pain Cancer: Reports: None Last Menstrual Period: FEBRUARY 21 Other Pertinent Past Medical History: ultrasound 08/11/2015- it was fine, my doctor says I'm a hypochondriac - Surgical History General Surgical History: Reports: Tubal ligation (2014) - Family History Family History: Reports: None - Social History Smoking Status: Current every day smoker, Heavy tobacco smoker Hx Substance Use: No Alcohol Screening: None Physical Exam - Physical Exam Appearance: Well-appearing, No pain distress, Well-nourished Eyes: DANIELLE, EOMI, Conjunctiva clear ENT: Ears normal, Nose normal, Oropharynx normal Respiratory: Airway patent, Breath sounds clear, Breath sounds equal, Respirations nonlabored Cardiovascular: RRR, Pulses normal, No rub, No murmur GI/: Soft, Nontender, No masses, Bowel sounds normal, No Organomegaly Musculoskeletal: Normal strength, ROM intact, No edema, No calf tenderness Skin: Warm, Dry, Normal color Neurological: Sensation intact, Motor intact, Reflexes intact, Cranial nerves intact, Alert, Oriented Psychiatric: Affect appropriate, Mood appropriate Interpretation - Radiology Interpretation Radiology Interpretation By: Radiologist Radiology Results: No acute changes Re-Evaluation - Re-Evaluation Time of Re-Evaluation: 16:00 Status: Improved Vital Signs Stable: Yes Pain Level: 3/10 Appearance: NAD Lungs: Clear Skin: Warm and Dry Neuro: Alert and Oriented X3 CV: RRR - Re-Evaluation Time of Re-Evaluation: 16:48 Status: Unchanged Vital Signs Stable: Yes Pain Level: 3/10 Appearance: NAD Skin: Warm and Dry Neuro: Alert and Oriented X3 CV: RRR Critical Care Note - Critical Care Note Total Time (mins): 0 Course - Course Hematology/Chemistry: 02/28/18 15:36 02/28/18 15:36 Orders, Labs, Meds: Lab Review 02/28/18 02/28/18 02/28/18 15:36 15:36 15:36 WBC 8.64 RBC 4.25 Hgb 13.7 Hct 40.0 MCV 94.1 MCH 32.2 H MCHC 34.3 RDW Coeff of Kandice 13.0 Plt Count 276 Immature Gran % (Auto) 0.2 Neut % (Auto) 71.3 Lymph % (Auto) 21.4 [place] % (Auto) 4.6 Eos % (Auto) 2.2 Baso % (Auto) 0.3 Immature Gran # (Auto) 0.0 Neut # (Auto) 6.2 Lymph # (Auto) 1.9 [place] # (Auto) 0.4 Eos # (Auto) 0.2 Baso # (Auto) 0.0 Sodium 138 Potassium 3.9 Chloride 106 Carbon Dioxide 22 Anion Gap 13.9 BUN 12 Creatinine 0.71 Estimated GFR (MDRD) 96.00 BUN/Creatinine Ratio 16.90 Glucose 87 Calcium 9.5 Total Bilirubin 0.4 AST 13 L ALT 14 Alkaline Phosphatase 77 Total Protein 7.7 Albumin 3.8 Globulin 3.9 Albumin/Globulin Ratio 0.97 Amylase 56 Lipase 14 Serum , Qual Negative Orders Category Date Time Status NPO REMINDER: IMAGING ONCE CARE 02/28/18 15:13 Completed AMYLASE Stat LAB 02/28/18 15:36 Completed CBC W/ AUTO DIFF Stat LAB 02/28/18 15:36 Completed COMPREHENSIVE METABOLIC PANEL Stat LAB 02/28/18 15:36 Completed LIPASE Stat LAB 02/28/18 15:36 Completed SERUM Stat LAB 02/28/18 15:36 Completed Ketorolac Tromethamine [Toradol] MEDS 02/28/18 15:52 Discontinued 60 mg IM ONCE STA Ondansetron HCl/Pf [Zofran 4 mg/2 ml] MEDS 02/28/18 16:09 Discontinued 4 mg IM ONCE STA CT ABDOMEN/PELVIS WO CONTRAST Stat RADS 02/28/18 15:[address] CHEST W/O CONTRAST Stat RADS 02/28/18 15:15 Completed ULTRASOUND ABDOMEN, RT. UPPER QUAD [U/S ABDOMEN, RT. RADS 02/28/18 15:13 Completed UPPER QUAD] Stat Medications Discontinued Medications Generic Name Dose Route Start Last Admin Trade Name Freq PRN Reason Stop Dose Admin Ketorolac Tromethamine 60 mg 02/28/18 15:52 02/28/18 16:21 Toradol IM 02/28/18 15:53 60 mg ONCE STA Administration Ondansetron HCl 4 mg 02/28/18 16:09 02/28/18 16:23 Zofran 4 Mg/2 Ml IM 02/28/18 16:10 4 mg ONCE STA Administration Vital Signs: Temp Pulse Resp BP Pulse Ox 02/28/18 15:04 97.9 F 73 18 108/75 98 Departure - Departure Time of Disposition: 16:49 (D/C INSTRUCTION AND ALL IMAGING REPORTS AND A COPY OF ALL LABS GIVEN TO THE PT. MAY WAS PRESENT ) Disposition: HOME SELF-CARE Discharge Problem: Abdominal pain Qualifiers: Abdominal location: right upper quadrant Qualified Code(s): R10.11 - Right upper quadrant pain Instructions: Abdominal Pain (ED) Condition: Good Pt referred to PMD for follow-up: Yes IPMP verified?: No Additional Instructions: Please call your Family Physician as soon as possible to schedule a follow-up appointment. Prescriptions: Nabumetone [Relafen] 750 mg PO BIDWM 2 Days #4 tablet Allergies/Adverse Reactions: Allergies No Known Allergies Allergy (Verified 12/20/17 09:30) Home Medications: Ambulatory Orders Sertraline HCl [Zoloft] 100 mg PO DAILY 01/05/16 Alprazolam [Xanax] 1 mg PO PRN PRN 04/24/16 Nabumetone [Relafen] 750 mg PO BIDWM 2 Days #4 tablet 02/28/18
== END 2018-02-28 17:01 | disposition home or self-care (01) ==
LOC: ED 15:01
DX: R10.11 Right upper quadrant pain (principal); F17.210 Nicotine dependence, cigarettes, uncomplicated; Z87.19 Personal history of other diseases of the digestive system
CPT/HCPCS: 36415; 80053; 82150; 83690; 84703; 85025; 96372; 99283

== ENCOUNTER 2018-07-30 09:58 | Emergency (ER) ==
[2018-07-30 10:03] VITALS: BP 123/79; TEMP 97.5; BMI 27.3
[2018-07-30] MEDS ORDERED: SODIUM CHLORIDE 1,000 ML IV STA (10:14)
[2018-07-30] MEDS ORDERED: TORADOL IVP STA (10:18)
[2018-07-30] MEDS ORDERED: ZOFRAN 4 MG/2 ML IVP STA (10:18)
--- NOTE | 2018-07-30 10:20 | ED.PDOC ---
General ED Provider: Dr. TIGRE CASTELLON Chief Complaint: Abdominal Pain Stated Complaint: Patientis a 33 year old female who comes to the ER with complains of left flank and left lower quadrant abdominal pain that started this morning. States that the pain is severe. Associated with nausea and vomiting. Time Seen by Physician: 10:10 Mode of Arrival: Walk-In Information Source: Patient Primary Care Provider: DREW RODRIGUEZ Nursing and Triage Documentation Reviewed and Agree: Yes Does patient meet sepsis criteria?: No If yes, has appropriate treatment been initiated?: No System Inflammatory Response Syndrome: Not Applicable Sepsis Protocol: For patient's 13 years and over: Temp is 96.8 and below OR 101 and greater Pulse >90 BPM Resp >20/minute Acutely Altered Mental Status Are patient's symptoms suggestive of a new infection, such as: -Pneumonia -Skin, Soft Tissue -Endocarditis -UTI -Bone, Joint Infection -Implantable Device -Acute Abdominal Infection -Wound Infection -Meningitis -Blood Stream Catheter Infection -Unknown Review of Systems - Review Of Systems Constitutional: Reports: No symptoms Eyes: Reports: No symptoms Ears, Nose, Mouth, Throat: Reports: No symptoms Respiratory: Reports: No symptoms Cardiac: Reports: No symptoms GI: Reports: Abdominal pain, Nausea, Poor appetite, Poor fluid intake, Vomiting : Reports: No symptoms Musculoskeletal: Reports: No symptoms Skin: Reports: No symptoms Neurological: Reports: No symptoms Endocrine: Reports: No symptoms Hematologic/Lymphatic: Reports: No symptoms All Other Systems: Reviewed and Negative Past Medical History - Past Medical History Previously Healthy: No Endocrine: Reports: None Cardiovascular: Reports: None Respiratory: Reports: None Hematological: Reports: None Gastrointestinal: Reports: GERD (states no NSAIDS), Other (chronic Abdominal pain with negative workup by GI doctors in [facility]. GI. ) Genitourinary: Reports: Kidney stones. Denies: None Neuro/Psych: Reports: Migraine, Anxiety, Depression Musculoskeletal: Reports: Back Pain Cancer: Reports: None Last Menstrual Period: Other Pertinent Past Medical History: ultrasound 08/11/2015- it was fine, my doctor says I'm a hypochondriac - Surgical History General Surgical History: Reports: Tubal ligation (2014) - Family History Family History: Reports: None - Social History Smoking Status: Current every day smoker, Heavy tobacco smoker Hx Substance Use: No Alcohol Screening: None - Immunizations Tetanus Shot up to Date: No Physical Exam - Physical Exam Appearance: Ill-appearing Ill-appearing: Moderate Pain Distress: Severe Neck: Supple Respiratory: Airway patent, Breath sounds clear, Breath sounds equal, Respirations nonlabored Cardiovascular: RRR, Pulses normal, No rub, No murmur GI/: Soft, Bowel sounds normal, Tender Musculoskeletal: Normal strength, ROM intact, No edema, No calf tenderness Skin: Warm, Dry, Normal color Neurological: Sensation intact, Motor intact, Cranial nerves intact, Alert, Oriented Psychiatric: Anxious Interpretation - Radiology Interpretation Radiology Interpretation By: Radiologist Radiology Results: Positive (3mm obstructing calculus in th left proximal ureter. with mild hydronephrosis) Exam Interpreted: CT Scan Physician Notification - Case Discussed Physician Notified: Dr. Green Time of Notification: 12:54 (Follow up wednesday with the clinic. Expect the stone to pass in one -two days. ) Critical Care Note - Critical Care Note Total Time (mins): 30 Course - Course Hematology/Chemistry: 07/30/18 10:40 07/30/18 10:40 Orders, Labs, Meds: Lab Review 07/30/18 07/30/18 07/30/18 10:40 10:40 10:40 WBC 9.76 RBC 3.72 L Hgb 12.2 Hct 35.2 L MCV 94.6 MCH 32.8 H MCHC 34.7 RDW Coeff of Kandice 12.9 Plt Count 266 Immature Gran % (Auto) 0.3 Neut % (Auto) 69.8 Lymph % (Auto) 21.1 [place] % (Auto) 5.8 Eos % (Auto) 2.6 Baso % (Auto) 0.4 Immature Gran # (Auto) 0.0 Neut # (Auto) 6.8 Lymph # (Auto) 2.1 [place] # (Auto) 0.6 Eos # (Auto) 0.3 Baso # (Auto) 0.0 Sodium 135.6 L Potassium 3.44 L Chloride 108.2 H Carbon Dioxide 23.6 Anion Gap 7.24 BUN 11.8 Creatinine 0.71 Estimated GFR (MDRD) 95.00 BUN/Creatinine Ratio 16.61 Glucose 115.0 H Calcium 8.52 Total Bilirubin 0.40 AST 30.1 ALT 14.7 Alkaline Phosphatase 65.4 Total Protein 6.79 Albumin 3.82 Globulin 2.97 Albumin/Globulin Ratio 1.28 Amylase 57.7 Lipase 32.7 Serum , Qual Negative Urine Color Urine Clarity Urine pH Ur Specific [place] Urine Protein Urine Glucose (UA) Urine Ketones Urine Blood Urine Nitrite Urine Bilirubin Urine Urobilinogen Ur Leukocyte Esterase Urine Microscopic RBC Ur Squamous Epith Cells Urine Bacteria 07/30/18 11:40 WBC RBC Hgb Hct MCV MCH MCHC RDW Coeff of Kandice Plt Count Immature Gran % (Auto) Neut % (Auto) Lymph % (Auto) [place] % (Auto) Eos % (Auto) Baso % (Auto) Immature Gran # (Auto) Neut # (Auto) Lymph # (Auto) [place] # (Auto) Eos # (Auto) Baso # (Auto) Sodium Potassium Chloride Carbon Dioxide Anion Gap BUN Creatinine Estimated GFR (MDRD) BUN/Creatinine Ratio Glucose Calcium Total Bilirubin AST ALT Alkaline Phosphatase Total Protein Albumin Globulin Albumin/Globulin Ratio Amylase Lipase Serum , Qual Urine Color Yellow Urine Clarity Clear Urine pH 8.0 Ur Specific [place] 1.015 Urine Protein Negative Urine Glucose (UA) Negative Urine Ketones Negative Urine Blood 3+ Urine Nitrite Negative Urine Bilirubin Negative Urine Urobilinogen 0.2 Ur Leukocyte Esterase Negative Urine Microscopic RBC 10-20 Ur Squamous Epith Cells 50-100 Urine Bacteria 1+ Orders Category Date Time Status ED IV/MEDIPORT/POWERPORT .ONCE EMERGENCY 07/30/18 10:14 Active AMYLASE Stat LAB 07/30/18 10:40 Completed CBC W/ AUTO DIFF Stat LAB 07/30/18 10:40 Completed COMPREHENSIVE METABOLIC PANEL Stat LAB 07/30/18 10:40 Completed LIPASE Stat LAB 07/30/18 10:40 Completed SERUM Stat LAB 07/30/18 10:40 Completed URINALYSIS C & S IF INDICATED Stat LAB 07/30/18 11:40 Completed URINE CULTURE Stat LAB 07/30/18 11:40 Received 0.9 % Sodium Chloride [Saline Flush] MEDS 07/30/18 10:14 Discontinued 1 syr IVF PRN PRN Dicyclomine Inj [Bentyl] MEDS 07/30/18 10:22 Discontinued 20 mg IM ONCE STA Ketorolac Tromethamine [Toradol] MEDS 07/30/18 10:18 Discontinued 30 mg IVP ONCE STA Ondansetron HCl/Pf [Zofran 4 mg/2 ml] MEDS 07/30/18 10:18 Discontinued 4 mg IVP ONCE STA Sodium Chloride 0.9% [Sodium Chloride] 1,000 ml MEDS 07/30/18 10:14 Discontinued IV BOLUS Tamsulosin HCl [Flomax] MEDS 07/30/18 12:31 Discontinued 0.4 mg PO ONCE STA CT ABD/PEL WO RENAL STONE PROT Stat RADS 07/30/18 11:19 Completed Medications Discontinued Medications Generic Name Dose Route Start Last Admin Trade Name Freq PRN Reason Stop Dose Admin Dicyclomine HCl 20 mg 07/30/18 10:22 07/30/18 10:33 Bentyl IM 07/30/18 10:23 20 mg ONCE STA Administration Sodium Chloride 1,000 mls @ 1,000 mls/hr 07/30/18 10:14 07/30/18 10:33 Sodium Chloride IV 07/30/18 11:13 1,000 mls/hr BOLUS STA Administration Ketorolac Tromethamine 30 mg 07/30/18 10:18 07/30/18 10:33 Toradol IVP 07/30/18 10:19 30 mg ONCE STA Administration Ondansetron HCl 4 mg 07/30/18 10:18 07/30/18 10:33 Zofran 4 Mg/2 Ml IVP 07/30/18 10:19 4 mg ONCE STA Administration Sodium Chloride 1 syr 07/30/18 10:14 Saline Flush IVF PRN PRN To flush IV Tamsulosin HCl 0.4 mg 07/30/18 12:31 07/30/18 13:16 Flomax PO 07/30/18 12:32 Not Given ONCE STA Vital Signs: Temp Pulse Resp BP Pulse Ox 07/30/18 10:01 97.5 F L 86 18 123/79 99 Departure - Departure Time of Disposition: 12:32 Disposition: HOME SELF-CARE Discharge Problem: Abdominal pain Instructions: Acute Abdominal Pain (ED) Condition: Fair Pt referred to PMD for follow-up: Yes IPMP verified?: No Additional Instructions: Follow up with Urologist next week: Please call Dr. Kenneth Green's office on Wednesday to schedule an appointment. . Return to the ER if worse Take medications as prescribed. Prescriptions: Hydrocodone Bit/Acetaminophen [Starbuck 5-325] 1 each PO Q6HR PRN #15 tablet PRN Reason: severe pain Tamsulosin HCl [Flomax] 0.4 mg PO DAILY #10 cap.er.24h Allergies/Adverse Reactions: Allergies No Known Allergies Allergy (Verified 07/30/18 10:03) Home Medications: Ambulatory Orders Sertraline HCl [Zoloft] 100 mg PO DAILY 01/05/16 Alprazolam [Xanax] 1 mg PO PRN PRN 04/24/16 Nabumetone [Relafen] 750 mg PO BIDWM 2 Days #4 tablet 02/28/18 Hydrocodone Bit/Acetaminophen [Star[place] 5-325] 1 each PO Q6HR PRN #15 tablet Tamsulosin HCl [Flomax] 0.4 mg PO DAILY #10 cap.er.24h 07/30/18 Disposition Discussed With: Patient, Family
[2018-07-30] MEDS ORDERED: BENTYL IM STA (10:22)
--- NOTE | 2018-07-30 11:57 | CT ---
EXAM: CT abdomen pelvis without contrast HISTORY: Left lower quadrant and flank pain COMPARISON: 02/28/2018 TECHNIQUE: CT abdomen pelvis performed without intravenous contrast. Coronal and sagittal reformatt ed images obtained. FINDINGS: Subsegmental atelectasis left lung base. No free air. No acute abnormalities of the bone s. Heart normal in size. Evaluation organ parenchyma limited without contrast. Liver unremarkable. Gallbladder unremarkable. Pancreas unremarkable. Spleen normal in size. Adrenals unremarkable. Ao rta normal in caliber. Uterus unremarkable. Right ovarian cyst or follicle measuring 2.3 cm. Stomach unremarkable. No dilated loops small bowel. Appendix appears normal. Colon unremarkable. No lymp hadenopathy or ascites. No nephrolithiasis. Mild left hydronephrosis secondary to a 3 mm calculus in the left proximal ureter. No right hydronephrosis. No calculi visualized in the normal course of t he right ureter. Bladder unremarkable. IMPRESSION: Mild left hydronephrosis secondary to a 3 mm obstructing calculus in the left proximal u reter.
[2018-07-30] MEDS ORDERED: FLOMAX PO STA (12:31)
== END 2018-07-30 13:00 | disposition home or self-care (01) ==
LOC: ED 09:58
DX: N13.2 Hydronephrosis with renal and ureteral calculous obstruction (principal); R10.9 Unspecified abdominal pain; R11.2 Nausea with vomiting, unspecified; Z87.442 Personal history of urinary calculi; F17.210 Nicotine dependence, cigarettes, uncomplicated
CPT/HCPCS: 36415; 74176; 80053; 81001; 82150; 83690; 84703; 85025; 87086; 99283

== ENCOUNTER 2018-12-09 20:01 | Emergency (ER) | payer MEDICAID, OTHER ==
[2018-12-09 20:09] VITALS: BP 117/81; TEMP 98.5; BMI 27.2
[2018-12-09] MEDS ORDERED: DILAUDID 4 MG/ML SYRINGE IM STA (20:15)
[2018-12-09] MEDS ORDERED: PHENERGAN 25 MG/ML VIAL IM STA (20:15)
[2018-12-09] MEDS ORDERED: TORADOL IM STA (20:16)
--- NOTE | 2018-12-09 20:17 | ED.PDOC ---
General ED Provider: Dr. FREDDY MCCALL-ER Chief Complaint: Headache Stated Complaint: rufino got a migraine---i get one twice a year Time Seen by Physician: 20:05 Mode of Arrival: Walk-In Information Source: Patient Exam Limitations: No limitations Nursing and Triage Documentation Reviewed and Agree: Yes Does patient meet sepsis criteria?: No System Inflammatory Response Syndrome: Not Applicable Sepsis Protocol: For patient's 13 years and over: Temp is 96.8 and below OR 101 and greater Pulse >90 BPM Resp >20/minute Acutely Altered Mental Status Are patient's symptoms suggestive of a new infection, such as: -Pneumonia -Skin, Soft Tissue -Endocarditis -UTI -Bone, Joint Infection -Implantable Device -Acute Abdominal Infection -Wound Infection -Meningitis -Blood Stream Catheter Infection -Unknown Neurological Complaint Exam - Headache Complaint/Exam Onset: Gradual Duration: a few hours Symptoms Are: Still present Timing: Constant Episodes Lasting: Seconds Worst Headache Ever: No Initial Severity: Mild Current Severity: Moderate Location: Diffuse Character: Reports: Dull, Throbbing, Migraine Aggravating: Reports: Bright lights Associated Signs and Symptoms: Reports: Nausea, Vomiting Related History: Reports: Similar episode Related Surgical History: Reports: None Temporal Arteritis Risk Factors: Reports: Female Normal Head CT Within Last 12 Months: Yes Fundoscopic Exam: Present: Normal Findings Papilledema Present: No Temporal Artery Tenderness: Present: None Sinus Tenderness: Present: None TMJ Tenderness: Present: None Glascow Coma Scale (see protocol): 15 Meningeal Signs Positive: No Pain on Passive Flexion-Positive Kernig's: No ROM Limited In: No Limitiations Focal Weakness: Present: None Focal Sensory Loss: Present: None Gait: Normal Nystagmus Present: No Gag Reflex Present: Yes [id number]: Normal Findings Romberg Test Positive: No Babinski Sign: Negative Right, Negative Left Heel to Toe Normal: Yes Differential Diagnoses: Migraine Review of Systems - Review Of Systems Constitutional: Reports: No symptoms Eyes: Reports: No symptoms Ears, Nose, Mouth, Throat: Reports: No symptoms Respiratory: Reports: No symptoms Cardiac: Reports: No symptoms GI: Reports: Nausea : Reports: No symptoms Musculoskeletal: Reports: No symptoms Skin: Reports: No symptoms Neurological: Reports: Headache Endocrine: Reports: No symptoms Hematologic/Lymphatic: Reports: No symptoms All Other Systems: Reviewed and Negative Past Medical History - Past Medical History Previously Healthy: No Endocrine: Reports: None Cardiovascular: Reports: None Respiratory: Reports: None Hematological: Reports: None Gastrointestinal: Reports: GERD (states no NSAIDS), Other (chronic Abdominal pain with negative workup by GI doctors in [facility]. GI. ) Genitourinary: Reports: Kidney stones. Denies: None Neuro/Psych: Reports: Migraine, Anxiety, Depression Musculoskeletal: Reports: Back Pain Cancer: Reports: None Last Menstrual Period: 11/26/18 Other Pertinent Past Medical History: ultrasound 08/11/2015- it was fine, my doctor says I'm a hypochondriac - Surgical History General Surgical History: Reports: Tubal ligation (2014) - Family History Family History: Reports: None - Social History Smoking Status: Current every day smoker, Heavy tobacco smoker Hx Substance Use: No Alcohol Screening: None Physical Exam - Physical Exam Appearance: Well-appearing, No pain distress, Well-nourished Pain Distress: Moderate Eyes: DANIELLE, EOMI, Conjunctiva clear ENT: Ears normal, Nose normal, Oropharynx normal Neck: Supple Respiratory: Airway patent, Breath sounds clear, Breath sounds equal, Respirations nonlabored Cardiovascular: RRR, Pulses normal, No rub, No murmur GI/: Soft, Nontender, No masses, Bowel sounds normal, No Organomegaly Musculoskeletal: Normal strength, ROM intact, No edema, No calf tenderness Skin: Warm, Dry, Normal color Neurological: Sensation intact, Motor intact, Reflexes intact, Cranial nerves intact, Alert, Oriented Psychiatric: Affect appropriate, Mood appropriate Re-Evaluation - Re-Evaluation Time of Re-Evaluation: 20:45 Status: Improved Vital Signs Stable: Yes Pain Level: 2 Appearance: NAD Lungs: Clear Skin: Warm and Dry Neuro: Alert and Oriented X3 CV: RRR Critical Care Note - Critical Care Note Total Time (mins): 0 Course - Course Orders, Labs, Meds: Orders Category Date Time Status Hydromorphone HCl/Pf [Dilaudid 4 mg/ml Syringe] MEDS 12/09/18 20:15 Stat 2 mg IM ONCE STA Ketorolac Tromethamine [Toradol] MEDS 12/09/18 20:16 Stat 60 mg IM ONCE STA Promethazine HCl [Phenergan 25 mg/ml Vial] MEDS 12/09/18 20:15 Stat 25 mg IM ONCE STA Medications Generic Name Dose Route Start Last Admin Trade Name Freq PRN Reason Stop Dose Admin Hydromorphone HCl 2 mg 12/09/18 20:15 Dilaudid 4 Mg/Ml Syringe IM 12/09/18 20:16 ONCE STA Ketorolac Tromethamine 60 mg 12/09/18 20:16 Toradol IM 12/09/18 20:17 ONCE STA Promethazine HCl 25 mg 12/09/18 20:15 Phenergan 25 Mg/Ml Vial IM 12/09/18 20:16 ONCE STA Vital Signs: Temp Pulse Resp BP Pulse Ox 12/09/18 20:03 98.5 F 82 20 117/81 95 Departure - Departure Time of Disposition: 20:19 Disposition: HOME SELF-CARE Discharge Problem: Migraine Qualifiers: Migraine type: unspecified Status migrainosus presence: without status migrainosus Intractability: not intractable Qualified Code(s): G43.909 - Migraine, unspecified, not intractable, without status migrainosus Instructions: Migraine Headache (ED) Condition: Good Pt referred to PMD for follow-up: No IPMP verified?: No Additional Instructions: f/u with pcp Allergies/Adverse Reactions: Allergies No Known Allergies Allergy (Verified 12/09/18 20:09) Home Medications: Ambulatory Orders Sertraline HCl [Zoloft] 100 mg PO DAILY 01/05/16 Alprazolam [Xanax] 1 mg PO PRN PRN 04/24/16 Disposition Discussed With: Patient
[2018-12-09] MEDS ORDERED: DILAUDID 1 MG/ML SYRINGE ONE (20:22)
== END 2018-12-09 21:08 | disposition home or self-care (01) ==
LOC: ED 20:01
DX: G43.909 Migraine, unspecified, not intractable, without status migrainosus (principal); F17.210 Nicotine dependence, cigarettes, uncomplicated
CPT/HCPCS: 96372; 99282; 99283

== ENCOUNTER 2019-02-27 20:19 | Emergency (ER) ==
[2019-02-27 20:25] VITALS: BP 136/90; TEMP 99.2; BMI 18.1
[2019-02-27] MEDS ORDERED: SODIUM CHLORIDE 1,000 ML IV STA (20:35)
--- NOTE | 2019-02-27 20:37 | ED.PDOC ---
General ED Provider: Dr. JANA GARCIA Chief Complaint: Palpitations Stated Complaint: Short of air; chest feels strange Time Seen by Physician: 20:34 Mode of Arrival: Walk-In Information Source: Patient Primary Care Provider: DREW RODRIGUEZ Nursing and Triage Documentation Reviewed and Agree: Yes Does patient meet sepsis criteria?: No System Inflammatory Response Syndrome: Not Applicable Sepsis Protocol: For patient's 13 years and over: Temp is 96.8 and below OR 101 and greater Pulse >90 BPM Resp >20/minute Acutely Altered Mental Status Are patient's symptoms suggestive of a new infection, such as: -Pneumonia -Skin, Soft Tissue -Endocarditis -UTI -Bone, Joint Infection -Implantable Device -Acute Abdominal Infection -Wound Infection -Meningitis -Blood Stream Catheter Infection -Unknown Review of Systems - Review Of Systems Constitutional: Reports: No symptoms Musculoskeletal: Reports: No symptoms Skin: Reports: No symptoms Neurological: Reports: Anxiety (by history; out of Xanax last week) All Other Systems: Reviewed and Negative Past Medical History - Past Medical History Previously Healthy: No Endocrine: Reports: None Cardiovascular: Reports: None Respiratory: Reports: None Hematological: Reports: None Gastrointestinal: Reports: GERD (states no NSAIDS), Other (chronic Abdominal pain with negative workup by GI doctors in [facility]. GI. ) Genitourinary: Reports: Kidney stones. Denies: None Neuro/Psych: Reports: Migraine, Anxiety, Depression Musculoskeletal: Reports: Back Pain Cancer: Reports: None Last Menstrual Period: 2 or 3 weeks ago Other Pertinent Past Medical History: ultrasound 08/11/2015- it was fine, my doctor says I'm a hypochondriac - Surgical History General Surgical History: Reports: Tubal ligation (2014) - Family History Family History: Reports: None - Social History Smoking Status: Current every day smoker Hx Substance Use: No Alcohol Screening: None - Immunizations Tetanus Shot up to Date: Yes Physical Exam - Physical Exam Appearance: Well-appearing Pain Distress: None Eyes: DANIELLE, EOMI ENT: Oropharynx normal Neck: Supple Respiratory: Airway patent, Breath sounds clear, Breath sounds equal, Respirations nonlabored Cardiovascular: RRR, Pulses normal GI/: Soft, Nontender Musculoskeletal: Normal strength, ROM intact Skin: Warm, Dry, Normal color Neurological: Sensation intact, Motor intact, Alert, Oriented Psychiatric: Affect appropriate, Mood appropriate Interpretation - Radiology Interpretation Radiology Interpretation By: Radiologist Radiology Results: No acute changes Exam Interpreted: Other (R ankle) - EKG Interpretation Time of EKG #1: 20:48 Rate: Normal Rhythm: Sinus Ectopy: None Farrell: NL ST Segment: Normal Critical Care Note - Critical Care Note Total Time (mins): 15 Course - Course Hematology/Chemistry: 02/27/19 20:46 02/27/19 20:46 Orders, Labs, Meds: Lab Review 02/27/19 02/27/19 02/27/19 20:46 20:46 20:46 WBC 8.14 RBC 3.96 L Hgb 13.3 Hct 39.3 MCV 99.2 H MCH 33.6 H MCHC 33.8 RDW Coeff of Kandice 12.5 Plt Count 283 Immature Gran % (Auto) 0.2 Neut % (Auto) 61.5 Lymph % (Auto) 28.5 Roberts % (Auto) 7.2 Eos % (Auto) 2.0 Baso % (Auto) 0.6 Immature Gran # (Auto) 0.0 Neut # (Auto) 5.0 Lymph # (Auto) 2.3 Roberts # (Auto) 0.6 Eos # (Auto) 0.2 Baso # (Auto) 0.1 D-Dimer (Manual) 307.17 Sodium 138.1 Potassium 3.54 Chloride 106.1 Carbon Dioxide 23.2 Anion Gap 12.34 BUN 12.9 Creatinine 0.77 Estimated GFR (MDRD) 87.00 BUN/Creatinine Ratio 16.75 Glucose 97.3 Calcium 9.41 Total Bilirubin 0.24 AST 24.7 ALT 15.9 Alkaline Phosphatase 64.5 Total Protein 7.44 Albumin 4.34 Globulin 3.10 Albumin/Globulin Ratio 1.40 Urine Color Urine Clarity Urine pH Ur Specific English Urine Protein Urine Glucose (UA) Urine Ketones Urine Blood Urine Nitrite Urine Bilirubin Urine Urobilinogen Ur Leukocyte Esterase Urine Microscopic RBC Ur Squamous Epith Cells Urine Bacteria Urine Test Urine Opiates Screen Ur Oxycodone Screen Urine Methadone Screen Ur Propoxyphene Screen Ur Barbiturates Screen U Tricyclic Antidepress Ur Phencyclidine Scrn Ur Amphetamine Screen U Methamphetamines Scrn U Benzodiazepines Scrn Urine Cocaine Screen U Cannabinoids Screen 02/27/19 02/27/19 02/27/19 21:53 21:53 21:53 WBC RBC Hgb Hct MCV MCH MCHC RDW Coeff of Kandice Plt Count Immature Gran % (Auto) Neut % (Auto) Lymph % (Auto) Roberts % (Auto) Eos % (Auto) Baso % (Auto) Immature Gran # (Auto) Neut # (Auto) Lymph # (Auto) Roberts # (Auto) Eos # (Auto) Baso # (Auto) D-Dimer (Manual) Sodium Potassium Chloride Carbon Dioxide Anion Gap BUN Creatinine Estimated GFR (MDRD) BUN/Creatinine Ratio Glucose Calcium Total Bilirubin AST ALT Alkaline Phosphatase Total Protein Albumin Globulin Albumin/Globulin Ratio Urine Color Yellow Urine Clarity Clear Urine pH 5.5 Ur Specific English <=1.005 Urine Protein Negative Urine Glucose (UA) Negative Urine Ketones Negative Urine Blood 2+ Urine Nitrite Negative Urine Bilirubin Negative Urine Urobilinogen 0.2 Ur Leukocyte Esterase Negative Urine Microscopic RBC 20-30 Ur Squamous Epith Cells 5-10 Urine Bacteria Trace Urine Test Negative Urine Opiates Screen Negative Ur Oxycodone Screen Negative Urine Methadone Screen Negative Ur Propoxyphene Screen Negative Ur Barbiturates Screen Negative U Tricyclic Antidepress Negative Ur Phencyclidine Scrn Negative Ur Amphetamine Screen Negative U Methamphetamines Scrn Negative U Benzodiazepines Scrn Negative Urine Cocaine Screen Negative U Cannabinoids Screen Negative Orders Category Date Time Status EKG-(ED ONLY) Stat CARDIO 02/27/19 20:36 Completed CBC W/ AUTO DIFF Stat LAB 02/27/19 20:46 Completed COMPREHENSIVE METABOLIC PANEL Stat LAB 02/27/19 20:46 Completed D-DIMER Stat LAB 02/27/19 20:46 Completed URINALYSIS C & S IF INDICATED Stat LAB 02/27/19 21:53 Completed URINE DRUG SCREEN (RAPID FOR ED) [DRUG SCREEN, URINE, LAB 02/27/19 21:53 Completed RAPID] Stat URINE Stat LAB 02/27/19 21:53 Completed Sodium Chloride 0.9% [Sodium Chloride] 1,000 ml MEDS 02/27/19 20:35 Discontinued IV BOLUS CHEST, 1V AP ONLY Stat RADS 02/27/19 21:22 Completed Medications Discontinued Medications Generic Name Dose Route Start Last Admin Trade Name Freq PRN Reason Stop Dose Admin Sodium Chloride 1,000 mls @ 1,000 mls/hr 02/27/19 20:35 02/27/19 21:03 Sodium Chloride IV 02/27/19 21:34 1,000 mls/hr BOLUS STA Administration Vital Signs: Temp Pulse Resp BP Pulse Ox 02/27/19 20:20 99.2 F 101 H 20 136/90 96 Departure - Departure Time of Disposition: 22:27 Disposition: HOME SELF-CARE Discharge Problem: Shortness of breath, Anxiety Hematuria Qualifiers: Hematuria type: other microscopic Qualified Code(s): R31.29 - Other microscopic hematuria Instructions: Anxiety (ED) Condition: Stable Pt referred to PMD for follow-up: Yes (follow up - call for appointment) IPMP verified?: Yes (on Xanax) Additional Instructions: Follow up with your provider for prescription refil(s); follow up with hematuria - you may be about to pass a stone. There is no evidence of a urinary tract infection and you have a history of kidney stones. Prescriptions: Alprazolam [Xanax] 0.5 mg PO DAILY #6 tablet Allergies/Adverse Reactions: Allergies No Known Allergies Allergy (Verified 02/27/19 20:26) Home Medications: Ambulatory Orders Sertraline HCl [Zoloft] 100 mg PO DAILY 01/05/16 Alprazolam [Xanax] 1 mg PO PRN PRN 04/24/16 Alprazolam [Xanax] 0.5 mg PO DAILY #6 tablet 02/27/19
--- NOTE | 2019-02-27 21:46 | DI ---
Exam: Single view chest x-ray. Date: 02/27/2019. Comparison: 06/30/2016. HISTORY: Shortness of breath. FINDINGS: No acute osseous abnormalities are seen. The lungs are clear. The cardiac silhouette and pulmonary vasculature are normal. Impression: No acute intrathoracic findings.
[2019-02-27 22:02] LABS: URINE PREGNANCY TEST NEGATIVE (NEGATIVE)
== END 2019-02-27 22:39 | disposition home or self-care (01) ==
LOC: ED 20:19
DX: F41.9 Anxiety disorder, unspecified (principal); R06.02 Shortness of breath; R31.29 Other microscopic hematuria; Z87.442 Personal history of urinary calculi; Z91.14 Patient's other noncompliance with medication regimen; Z79.899 Other long term (current) drug therapy; F17.210 Nicotine dependence, cigarettes, uncomplicated
CPT/HCPCS: 36415; 80053; 80306; 81001; 81025; 85025; 85379; 93005; 93010; 96360; 99284

== ENCOUNTER 2019-05-16 13:34 | Emergency (ER) ==
[2019-05-16 13:38] VITALS: BP 124/84; TEMP 99.3; BMI 26.6
--- NOTE | 2019-05-16 13:54 | ED.PDOC ---
General ED Provider: Dr. FREDDY QUINONES Chief Complaint: Abdominal Pain Stated Complaint: Nausea and upper abdominal pain. Persistent buring pain in periumbilical region. Onset X 2days. NO SIGNIFICANT ORAL INTAKE >24 hrs. States I feel dehydrated. Denies dysuria Time Seen by Physician: 13:35 Mode of Arrival: Walk-In Information Source: Patient Exam Limitations: No limitations Nursing and Triage Documentation Reviewed and Agree: Yes Does patient meet sepsis criteria?: No System Inflammatory Response Syndrome: Not Applicable Sepsis Protocol: For patient's 13 years and over: Temp is 96.8 and below OR 101 and greater Pulse >90 BPM Resp >20/minute Acutely Altered Mental Status Are patient's symptoms suggestive of a new infection, such as: -Pneumonia -Skin, Soft Tissue -Endocarditis -UTI -Bone, Joint Infection -Implantable Device -Acute Abdominal Infection -Wound Infection -Meningitis -Blood Stream Catheter Infection -Unknown GI Complaint Exam - Abdominal Pain Complaint/Exam Onset: Gradual Duration: intermittently for several days; Symptoms Are: Worse Timing: Intermittent Initial Severity: Moderate Current Severity: Moderate Location of Pain: Epigastric Character: Reports: Aching, Cramping Alleviating: Reports: None Associated Signs and Symptoms: Denies: Diaphoresis, Fever, Cough, Chest pain, Dizziness, Back pain, Constipation, Blood in stool, Dysuria, Urinary frequency, Decreased urine output, Decreased appetite, Vaginal bleeding, Vaginal discharge , Nausea, Vomiting, Diarrhea, Sore throat, Decreased activity Related History: Reports: Similar episode (becomes extremely anxious and symptoms get worese) AAA Risk Factors: Reports: None Cardiac Risk Factors: Reports: None Ectopic Risk Factors: Reports: None Ovarian Torsion Risk Factors: Reports: None Surgical Obstruction Risk Factors: Reports: None Related Surgical History: Reports: None Abdominal Findings: Present: None Differential Diagnoses: Irritable Bowel Syndrome, Other (Gastrits; anxiety) Review of Systems - Review Of Systems Constitutional: Reports: No symptoms Eyes: Reports: No symptoms Ears, Nose, Mouth, Throat: Reports: No symptoms Respiratory: Reports: No symptoms Cardiac: Reports: No symptoms GI: Reports: Abdominal pain, Nausea : Reports: No symptoms Musculoskeletal: Reports: No symptoms Skin: Reports: No symptoms Neurological: Reports: No symptoms Endocrine: Reports: No symptoms Hematologic/Lymphatic: Reports: No symptoms All Other Systems: Reviewed and Negative Past Medical History - Past Medical History Previously Healthy: No Endocrine: Reports: None Cardiovascular: Reports: None Respiratory: Reports: None Hematological: Reports: None Gastrointestinal: Reports: GERD (states no NSAIDS), Other (chronic Abdominal pain with [facility]. ) Genitourinary: Reports: Kidney stones. Denies: None Neuro/Psych: Reports: Migraine, Anxiety, Depression Musculoskeletal: Reports: Back Pain Cancer: Reports: None Last Menstrual Period: may 01 Other Pertinent Past Medical History: ultrasound 08/11/2015- it was fine, my doctor says I'm a hypochondriac - Surgical History General Surgical History: Reports: Tubal ligation (2014) - Family History Family History: Reports: None - Social History Smoking Status: Current every day smoker Hx Substance Use: No Alcohol Screening: None Physical Exam - Physical Exam Appearance: Well-appearing, No pain distress, Well-nourished Ill-appearing: Mild Pain Distress: Mild Eyes: DANIELLE, EOMI, Conjunctiva clear ENT: Ears normal, Nose normal, Oropharynx normal Neck: Supple Respiratory: Airway patent, Breath sounds clear, Breath sounds equal, Respirations nonlabored Cardiovascular: RRR GI/: Soft, Nontender, No masses, Bowel sounds normal, No Organomegaly Musculoskeletal: Normal strength Skin: Warm Neurological: Sensation intact, Motor intact, Reflexes intact, Cranial nerves intact, Alert, Oriented Psychiatric: Affect appropriate, Mood appropriate, Anxious Interpretation - Radiology Interpretation Exam Interpreted: CT Scan (Abdomen -wnl) Re-Evaluation - Re-Evaluation Time of Re-Evaluation: 15:35 (Still symptomatic very anxious) Status: Unchanged Vital Signs Stable: Yes Appearance: NAD Lungs: Clear Skin: Warm and Dry Neuro: Alert and Oriented X3 CV: RRR - Re-Evaluation Time of Re-Evaluation: 16:20 Status: Improved Vital Signs Stable: Yes (Continue meds as directed) Critical Care Note - Critical Care Note Total Time (mins): 30 Course - Course Hematology/Chemistry: 05/16/19 14:10 05/16/19 14:10 Orders, Labs, Meds: Lab Review 05/16/19 05/16/19 05/16/19 13:45 13:45 13:45 WBC RBC Hgb Hct MCV MCH MCHC RDW Coeff of Kandice Plt Count Immature Gran % (Auto) Neut % (Auto) Lymph % (Auto) Daniels % (Auto) Eos % (Auto) Baso % (Auto) Immature Gran # (Auto) Neut # (Auto) Lymph # (Auto) Daniels # (Auto) Eos # (Auto) Baso # (Auto) D-Dimer (Manual) Sodium Potassium Chloride Carbon Dioxide Anion Gap BUN Creatinine Estimated GFR (MDRD) BUN/Creatinine Ratio Glucose Lactic Acid Calcium Total Bilirubin AST ALT Alkaline Phosphatase Total Protein Albumin Globulin Albumin/Globulin Ratio Amylase Urine Color Yellow Urine Clarity Clear Urine pH 7.0 Ur Specific [place] 1.010 Urine Protein Negative Urine Glucose (UA) Negative Urine Ketones Negative Urine Blood 2+ Urine Nitrite Negative Urine Bilirubin Negative Urine Urobilinogen 0.2 Ur Leukocyte Esterase Negative Urine Microscopic RBC 0-2 Ur Squamous Epith Cells 2-5 Urine Test Negative Urine Opiates Screen Negative Ur Oxycodone Screen Negative Urine Methadone Screen Negative Ur Propoxyphene Screen Negative Ur Barbiturates Screen Negative U Tricyclic Antidepress Negative Ur Phencyclidine Scrn Negative Ur Amphetamine Screen Negative U Methamphetamines Scrn Negative U Benzodiazepines Scrn Positive Urine Cocaine Screen Negative U Cannabinoids Screen Negative 05/16/19 05/16/19 05/16/19 14:10 14:10 14:10 WBC 8.27 RBC 3.90 L Hgb 13.0 Hct 38.5 MCV 98.7 MCH 33.3 H MCHC 33.8 RDW Coeff of Kandice 12.4 Plt Count 323 Immature Gran % (Auto) 0.2 Neut % (Auto) 74.1 Lymph % (Auto) 18.7 Daniels % (Auto) 4.7 Eos % (Auto) 1.8 Baso % (Auto) 0.5 Immature Gran # (Auto) 0.0 Neut # (Auto) 6.1 Lymph # (Auto) 1.6 Daniels # (Auto) 0.4 Eos # (Auto) 0.2 Baso # (Auto) 0.0 D-Dimer (Manual) 310.99 Sodium 139.8 Potassium 3.85 Chloride 108.7 H Carbon Dioxide 24.1 Anion Gap 10.85 BUN 8.7 Creatinine 0.62 Estimated GFR (MDRD) 112.00 BUN/Creatinine Ratio 14.03 Glucose 115.7 H Lactic Acid Calcium 9.29 Total Bilirubin 0.53 AST 23.5 ALT 17.7 Alkaline Phosphatase 76.2 Total Protein 8.12 Albumin 4.61 Globulin 3.51 Albumin/Globulin Ratio 1.31 Amylase 67.5 Urine Color Urine Clarity Urine pH Ur Specific [place] Urine Protein Urine Glucose (UA) Urine Ketones Urine Blood Urine Nitrite Urine Bilirubin Urine Urobilinogen Ur Leukocyte Esterase Urine Microscopic RBC Ur Squamous Epith Cells Urine Test Urine Opiates Screen Ur Oxycodone Screen Urine Methadone Screen Ur Propoxyphene Screen Ur Barbiturates Screen U Tricyclic Antidepress Ur Phencyclidine Scrn Ur Amphetamine Screen U Methamphetamines Scrn U Benzodiazepines Scrn Urine Cocaine Screen U Cannabinoids Screen 05/16/19 14:24 WBC RBC Hgb Hct MCV MCH MCHC RDW Coeff of Kandice Plt Count Immature Gran % (Auto) Neut % (Auto) Lymph % (Auto) Daniels % (Auto) Eos % (Auto) Baso % (Auto) Immature Gran # (Auto) Neut # (Auto) Lymph # (Auto) Daniels # (Auto) Eos # (Auto) Baso # (Auto) D-Dimer (Manual) Sodium Potassium Chloride Carbon Dioxide Anion Gap BUN Creatinine Estimated GFR (MDRD) BUN/Creatinine Ratio Glucose Lactic Acid 0.81 Calcium Total Bilirubin AST ALT Alkaline Phosphatase Total Protein Albumin Globulin Albumin/Globulin Ratio Amylase Urine Color Urine Clarity Urine pH Ur Specific [place] Urine Protein Urine Glucose (UA) Urine Ketones Urine Blood Urine Nitrite Urine Bilirubin Urine Urobilinogen Ur Leukocyte Esterase Urine Microscopic RBC Ur Squamous Epith Cells Urine Test Urine Opiates Screen Ur Oxycodone Screen Urine Methadone Screen Ur Propoxyphene Screen Ur Barbiturates Screen U Tricyclic Antidepress Ur Phencyclidine Scrn Ur Amphetamine Screen U Methamphetamines Scrn U Benzodiazepines Scrn Urine Cocaine Screen U Cannabinoids Screen Orders Category Date Time Status IV [ED IV/MEDIPORT/POWERPORT] .ONCE EMERGENCY 05/16/19 13:55 Active AMYLASE Stat LAB 05/16/19 14:10 Completed CBC W/ AUTO DIFF Stat LAB 05/16/19 14:10 Completed CMP [COMPREHENSIVE METABOLIC PANEL] Stat LAB 05/16/19 14:10 Completed D-DIMER Stat LAB 05/16/19 14:10 Completed LACTIC ACID Stat LAB 05/16/19 14:24 Completed TEST URINE [URINE ] Stat LAB 05/16/19 13:45 Completed URINALYSIS C & S IF INDICATED Stat LAB 05/16/19 13:45 Completed URINE DRUG SCREEN (RAPID FOR ED) [DRUG SCREEN, URINE, LAB 05/16/19 13:45 Completed RAPID] Stat 0.9 % Sodium Chloride [Saline Flush] MEDS 05/16/19 13:55 Active 1 syr IVF PRN PRN Famotidine Inj [Pepcid] MEDS 05/16/19 14:17 Discontinued 20 mg IVP ONCE STA Hydroxyzine Pamoate [Vistaril] MEDS 05/16/19 15:49 Discontinued 25 mg PO ONCE STA Mag-Al Plus//Lidocaine [Gi Cocktail] MEDS 05/16/19 15:48 Discontinued 30 ml PO ONCE STA Ondansetron HCl/Pf [Zofran 4 mg/2 ml] MEDS 05/16/19 13:56 Discontinued 4 mg IVP ONCE STA Sodium Chloride 0.9% [Sodium Chloride] 1,000 ml MEDS 05/16/19 13:[address] ABDOMEN/PELVIS WO CONTRAST Stat RADS 05/16/19 13:58 Completed Medications Generic Name Dose Route Start Last Admin Trade Name Freq PRN Reason Stop Dose Admin Sodium Chloride 1 syr 05/16/19 13:55 05/16/19 14:25 Saline Flush IVF 1 syr PRN PRN Administration To flush IV Discontinued Medications Generic Name Dose Route Start Last Admin Trade Name Freq PRN Reason Stop Dose Admin Al Hydroxide/Mg Hydroxide 30 ml 05/16/19 15:48 05/16/19 15:56 Gi Cocktail PO 05/16/19 15:49 30 ml ONCE STA Administration Famotidine 20 mg 05/16/19 14:17 05/16/19 14:29 Pepcid IVP 05/16/19 14:18 20 mg ONCE STA Administration Hydroxyzine Pamoate 25 mg 05/16/19 15:49 05/16/19 15:56 Vistaril PO 05/16/19 15:50 25 mg ONCE STA Administration Sodium Chloride 1,000 mls @ 1,000 mls/hr 05/16/19 13:57 05/16/19 14:25 Sodium Chloride IV 05/16/19 14:56 1,000 mls/hr BOLUS STA Administration Ondansetron HCl 4 mg 05/16/19 13:56 05/16/19 14:24 Zofran 4 Mg/2 Ml IVP 05/16/19 13:57 4 mg ONCE STA Administration Vital Signs: Temp Pulse Resp BP Pulse Ox 05/16/19 13:34 99.3 F 110 H 18 124/84 96 Departure - Departure Time of Disposition: 16:15 Disposition: HOME SELF-CARE Discharge Problem: Anxiety about health, Gastritis, Panic disorder [episodic paroxysmal anxiety] Instructions: Panic Disorder (ED), Anxiety (ED) Condition: Stable Pt referred to PMD for follow-up: Yes IPMP verified?: Yes Additional Instructions: Take Pepcid 20 mg bid Remain on xanxz and zoloft See PCP in next week c Prescriptions: Famotidine [Pepcid] 20 mg PO BID #20 tablet Allergies/Adverse Reactions: Allergies No Known Allergies Allergy (Verified 05/16/19 13:38) Home Medications: Ambulatory Orders Sertraline HCl [Zoloft] 100 mg PO DAILY 01/05/16 Alprazolam [Xanax] 1 mg PO PRN PRN 04/24/16 Alprazolam [Xanax] 0.5 mg PO DAILY #6 tablet 02/27/19 Famotidine [Pepcid] 20 mg PO BID #20 tablet 05/16/19 Disposition Discussed With: Patient Additional Comments Additional Comments: discussed ongoing fear she has with yaneth and jeff. FOllow up pcp /see psychiatrist.
[2019-05-16] MEDS ORDERED: ZOFRAN 4 MG/2 ML IVP STA (13:56)
[2019-05-16] MEDS ORDERED: SODIUM CHLORIDE 1,000 ML IV STA (13:57)
[2019-05-16] MEDS ORDERED: PEPCID IVP STA (14:17)
[2019-05-16 14:31] LABS: URINE PREGNANCY TEST NEGATIVE (NEGATIVE)
--- NOTE | 2019-05-16 15:22 | CT ---
EXAM: CT abdomen pelvis without contrast HISTORY: Mid abdominal pain COMPARISON: 07/30/2018 TECHNIQUE: CT abdomen pelvis performed without intravenous contrast. Coronal and sagittal reformatt ed images obtained. FINDINGS: Mild dependent density lung bases. No free air. No acute abnormalities of the bones. He art normal in size. Evaluation organ parenchyma limited without contrast. Liver unremarkable. Gall bladder unremarkable. Pancreas unremarkable. Spleen mildly enlarged. Adrenals unremarkable. Aorta normal in caliber. Uterus unremarkable. Right ovarian cyst or follicle measures 2.4 cm. Aorta nor mal in caliber. No lymphadenopathy or ascites. Small fat-containing periumbilical hernia. Stomach unremarkable. No dilated loops small bowel. Appendix appears normal. Colon unremarkable. No hydro nephrosis or nephrolithiasis. No calculi visualized in normal course of the ureters. Bladder unrema rkable. IMPRESSION: 1. No acute abnormality identified in the abdomen or pelvis. 2. Right ovarian cyst or follicle measuring 2.4 cm.
[2019-05-16] MEDS ORDERED: GI COCKTAIL PO STA (15:48)
[2019-05-16] MEDS ORDERED: VISTARIL PO STA (15:49)
== END 2019-05-16 16:21 | disposition home or self-care (01) ==
LOC: ED 13:34
DX: K29.70 Gastritis, unspecified, without bleeding (principal); F41.0 Panic disorder [episodic paroxysmal anxiety]; F17.210 Nicotine dependence, cigarettes, uncomplicated; Z79.899 Other long term (current) drug therapy
CPT/HCPCS: 36415; 80053; 80306; 81001; 81025; 82150; 83605; 85025; 85379; 96361; 96374; 96375; 99283